=== PATIENT | female | born 1960 | race Two or more races ===

== ENCOUNTER 2021-01-01 07:50 | Outpatient (REF) | payer OTHER, SELFPAY ==
[2021-01-01 08:52] LABS: MANUAL DIFF FLAG NO
[2021-01-01 09:04] LABS: Glucose Urine UA NEG (NEG); Leukocyte Esterase Urine NEG (NEG); Nitrite Urine NEG (NEG); Specific Gravity - Urine >= 1.030 (1.005-1.025); Urine Blood NEG (NEG); Urine Ketones NEG (NEG); Urine Protein TRACE MG/DL (NEG-TRACE)
[2021-01-01 09:05] LABS: Basophils Percent Auto 0.5 % (0-2); Eosinophils Absolute Auto 0.3 X10*3/uL (0.0-0.4); Eosinophils Percent Auto 3.4 % (0-4); Hematocrit 38.4 % (37-47); Hemoglobin 12.1 g/dl (12.0-16.0); Imm Gran Abs Auto 0.03 X10*3/uL (0.00-0.03); Imm Gran Pct Auto 0.4 % (0.0-0.4); Lymphocytes Absolute Auto 2.8 X10*3/uL (1.2-4.9); Lymphocytes Percent Auto 32.2 % (20-40); Mean Corpuscular HGB Conc 31.5 g/dl (31.0-35.0); Mean Corpuscular Hemoglobin 24.2 pg (27.0-33.0); Mean Platelet Volume 11.5 fL (9.4-12.3); Monocytes Absolute Auto 0.6 X10*3/uL (0.1-1.2); Monocytes Percent Auto 6.5 % (2-11); Neutrophils Absolute Auto 4.9 X10*3/uL (2.0-8.3); Platelet Count 229 X10*3/uL (160-400); Red Blood Count 4.99 X10*6/uL (4.20-5.50); Red Cell Distribution Width 15.6 % (11.0-16.0); White Blood Count 8.6 X10*3/uL (4.8-10.8)
[2021-01-01 09:10] LABS: Appearance Urine CLEAR; Color Urine YELLOW
[2021-01-01 09:39] LABS: Alanine Aminotransferase 15 U/L (0-31); Albumin Level 4.2 g/dL (3.5-5.0); Alkaline Phosphatase 81 U/L (39-117); Anion Gap 12 (12-20); Aspartate Amino Transferase 17 U/L (5-31); Bilirubin Total 0.4 mg/dL (0.0-1.0); Blood Urea Nitrogen 15 mg/dL (9-16); Calcium 9.3 mg/dL (8.4-10.2); Carbon Dioxide 25 mmol/L (22-29); Chloride 105 mmol/L (96-108); Cholesterol 154 mg/dL; Estimated Glomerular Filt Rate > 60; Glucose Fasting 229 mg/dL (60-99); HDL Cholesterol 33 mg/dL; LDL Cholesterol Calculated 71 mg/dl; Potassium 4.9 mmol/L (3.3-5.1); Sodium 137 mmol/L (135-145); Total Protein 6.7 g/dL (6.5-8.0); Triglycerides 252 mg/dL
[2021-01-01 10:01] LABS: TSH reflex Free T4 0.68 uIU/mL (0.32-4.0)
== END 2021-01-01 07:51 | disposition home or self-care (01) ==
LOC: HO.LAB 07:50
PROVIDERS: Visit Provider Internal Medicine
DX: J30.9 Allergic rhinitis, unspecified (principal); J45.909 Unspecified asthma, uncomplicated; E11.9 Type 2 diabetes mellitus without complications; E78.5 Hyperlipidemia, unspecified; E66.3 Overweight
CPT/HCPCS: 36415; 80053; 80061; 81003; 84443; 85025

== ENCOUNTER 2021-01-02 13:00 | Outpatient (REF) | payer OTHER, SELFPAY ==
--- NOTE | ~2021-01-02 | XR_ITS ---
EXAMINATION: XR FOOT, LEFT CLINICAL INFORMATION: Left foot pain. COMPARISON: None TECHNIQUE: AP, lateral, and oblique views of the left foot. An arrow points to the lateral aspect of the tarsal bones. FINDINGS: There is no acute fracture or dislocation. Minimal first metatarsophalangeal degenerative joint changes are seen. There is no acute fracture or dislocation. The tarsal bones are normally aligned. Small plantar and retrocalcaneal spurs are noted. The soft tissues are unremarkable. XR/XR foot LT 2V IMPRESSION: 1. Minimal first metatarsophalangeal degenerative joint changes suggesting osteoarthritis. 2. Small degenerative calcaneal spurs. 3. No significant abnormality in the region of concern at the level the lateral mid foot.
== END 2021-01-02 13:01 | disposition home or self-care (01) ==
LOC: HO.XRAY 13:00
PROVIDERS: PCP Internal Medicine; Visit Provider Internal Medicine
DX: M71.372 Other bursal cyst, left ankle and foot (principal)
CPT/HCPCS: 73620

== ENCOUNTER 2021-02-11 14:50 | Outpatient (REF) | payer OTHER, SELFPAY ==
--- NOTE | ~2021-02-11 | XR_ITS ---
EXAMINATION: XR CHEST CLINICAL INFORMATION: Shortness of breath COMPARISON: Previous chest x-ray most recent September 2014 TECHNIQUE: 2 views of the chest were obtained. FINDINGS: The cardiac and mediastinal contours are stable. The lungs are clear. There is no pleural effusion or pneumonia thorax. There are degenerative changes of the spine. XR/XR chest 2V IMPRESSION: No evidence for acute disease in the chest.
== END 2021-02-11 14:51 | disposition home or self-care (01) ==
LOC: HO.XRAY 14:50
PROVIDERS: PCP Internal Medicine; Visit Provider Nurse Practitioner Family
DX: R06.02 Shortness of breath (principal)
CPT/HCPCS: 71046

== ENCOUNTER 2021-04-02 07:53 | Outpatient (REF) | payer OTHER, SELFPAY ==
[2021-04-02 08:12] LABS: MANUAL DIFF FLAG NO
[2021-04-02 08:19] LABS: Basophils Absolute Auto 0.1 X10*3/uL (0.0-0.2); Basophils Percent Auto 0.6 % (0-2); Eosinophils Absolute Auto 0.2 X10*3/uL (0.0-0.4); Eosinophils Percent Auto 2.1 % (0-4); Hematocrit 40.3 % (37-47); Hemoglobin 12.6 g/dl (12.0-16.0); Imm Gran Abs Auto 0.02 X10*3/uL (0.00-0.03); Imm Gran Pct Auto 0.2 % (0.0-0.4); Lymphocytes Absolute Auto 2.5 X10*3/uL (1.2-4.9); Lymphocytes Percent Auto 29.3 % (20-40); Mean Corpuscular HGB Conc 31.3 g/dl (31.0-35.0); Mean Corpuscular Hemoglobin 23.7 pg (27.0-33.0); Mean Corpuscular Volume 75.9 fL (80-98); Mean Platelet Volume 10.7 fL (9.4-12.3); Monocytes Absolute Auto 0.6 X10*3/uL (0.1-1.2); Monocytes Percent Auto 6.8 % (2-11); Neutrophils Absolute Auto 5.2 X10*3/uL (2.0-8.3); Platelet Count 254 X10*3/uL (160-400); Red Blood Count 5.31 X10*6/uL (4.20-5.50); Red Cell Distribution Width 15.5 % (11.0-16.0); White Blood Count 8.5 X10*3/uL (4.8-10.8)
[2021-04-02 08:34] LABS: Estimated Average Glucose 189 mg/dL; Hemoglobin A1c % 8.2 %
[2021-04-02 08:44] LABS: Appearance Urine CLEAR; Color Urine YELLOW; Glucose Urine UA NEG (NEG); Leukocyte Esterase Urine NEG (NEG); Nitrite Urine NEG (NEG); Specific Gravity - Urine >= 1.030 (1.005-1.025); Urine Blood NEG (NEG); Urine Ketones NEG (NEG); Urine Protein TRACE MG/DL (NEG-TRACE)
[2021-04-02 08:45] LABS: Alanine Aminotransferase 15 U/L (0-31); Albumin Level 4.4 g/dL (3.5-5.0); Alkaline Phosphatase 84 U/L (39-117); Anion Gap 17 (12-20); Aspartate Amino Transferase 16 U/L (5-31); Bilirubin Total 0.4 mg/dL (0.0-1.0); Blood Urea Nitrogen 16 mg/dL (9-16); Carbon Dioxide 26 mmol/L (22-29); Chloride 101 mmol/L (96-108); Cholesterol 146 mg/dL; Estimated Glomerular Filt Rate > 60; Glucose Fasting 194 mg/dL (60-99); HDL Cholesterol 30 mg/dL; LDL Cholesterol Calculated 58 mg/dl; Potassium 4.8 mmol/L (3.3-5.1); Sodium 139 mmol/L (135-145); Total Protein 6.8 g/dL (6.5-8.0); Triglycerides 290 mg/dL
[2021-04-02 08:56] LABS: TSH reflex Free T4 0.82 uIU/mL (0.32-4.0); Vitamin D 25-OH Total 17.3 ng/mL (>30)
[2021-04-02 08:59] LABS: Creatinine Urine 110.49 mg/dL; Microalbum/Creatinine Ratio Ur 201.8 ug/mg cr
== END 2021-04-02 07:54 | disposition home or self-care (01) ==
LOC: HO.LAB 07:53
PROVIDERS: PCP Internal Medicine; Visit Provider Internal Medicine
DX: E11.9 Type 2 diabetes mellitus without complications (principal); J30.2 Other seasonal allergic rhinitis; J45.40 Moderate persistent asthma, uncomplicated; E78.5 Hyperlipidemia, unspecified; E66.3 Overweight; E55.9 Vitamin D deficiency, unspecified
CPT/HCPCS: 36415; 80053; 80061; 81003; 82043; 82306; 83036; 84443; 85025

== ENCOUNTER 2021-04-08 16:52 | Outpatient (REF) | payer OTHER, SELFPAY ==
--- NOTE | ~2021-04-08 | XR_ITS ---
EXAMINATION: XR BILATERAL HIPS WITH AP PELVIS CLINICAL INFORMATION: Right hip pain. COMPARISON: None. TECHNIQUE: AP view the pelvis as well as AP and frog-leg lateral views of the right and left hip. FINDINGS: No acute fracture or dislocation. Mild right and left hip joint space narrowing with marginal osteophytes. No osseous erosion. Enthesopathic spurring at the left greater tuberosity. XR/XR hip BI w PEL1V IMPRESSION: Mild right and left hip osteoarthritis.
== END 2021-04-08 16:53 | disposition home or self-care (01) ==
LOC: HO.XRAY 16:52
PROVIDERS: PCP Internal Medicine; Visit Provider Internal Medicine
DX: M25.551 Pain in right hip (principal); M25.552 Pain in left hip
CPT/HCPCS: 73521

== ENCOUNTER 2021-04-14 10:37 | Outpatient (REF) | payer OTHER, SELFPAY ==
--- NOTE | ~2021-04-14 | US_ITS ---
EXAMINATION: US ABDOMEN COMPLETE CLINICAL INFORMATION: Epigastric pain. COMPARISON: None TECHNIQUE: Real-time imaging of the abdominal viscera. FINDINGS: PANCREAS: Normal. ABDOMINAL AORTA: The proximal, mid, and distal segments are normal in caliber. INFERIOR VENA CAVA: Visualized portions are normal. LIVER: Liver echotexture is increased probably representing fatty infiltration. There are hypoechoic areas adjacent to the gallbladder, characteristic location of focal fatty sparing. There are 2 liver cysts measuring 1.2 cm and 0.8 cm in the left lobe of the liver. There is a 2 cm peripheral hypoechoic area in the right lobe of the liver measuring 1.6 x 1.4 x 2 cm. It is uncertain whether this represents an atypical location of focal fatty sparing or a mass. There is no biliary duct dilatation. GALLBLADDER: Normal in size. There are echogenic densities adjacent to the gallbladder wall that do not move or shadow suggestive polyps. The largest measures 6 x 4 x 4 mm. No definite gallstones are seen. The gallbladder wall does not appear thickened. COMMON BILE DUCT: Normal in caliber measuring 0.5 cm in diameter. RIGHT KIDNEY: Normal. No hydronephrosis. No renal calculi or focal parenchymal lesions. The kidney measures 11.2 cm in maximum dimension. LEFT KIDNEY: There is a 5.3 x 6.1 x 5.7 cm solid hypoechoic lesion in the upper pole suggestive of a mass. There are 2 left renal stones. 5 mm in the mid and lower pole. There is an 1.8 x 1.5 x 1.9 cm heterogeneous partially solid partially cystic lesion in the lower pole questionable for complex cyst versus mass. There are several left renal cysts. No hydronephrosis. No renal calculi or focal parenchymal lesions. The kidney measures cm in maximum dimension. SPLEEN: Normal. The spleen measures 10.2 cm in maximum dimension. FREE FLUID: None. US/US abdomen complete IMPRESSION: 5 x 6 cm left upper pole renal mass. Question 1.8 x 1.5 x 1.9 cm complex cyst versus mass in the lower pole. Left renal cysts. Left renal stones. Fatty liver. 1.6 x 1.4 x 2 cm hypoechoic lesion in the peripheral right lobe of the liver. It is uncertain whether this represents a mass or atypical area of focal fatty sparing. Small liver cysts. Probable gallbladder wall polyps. Findings will be communicated by the [place] work flow masseur/masseuse Juliann Li.
== END 2021-04-14 10:38 | disposition home or self-care (01) ==
LOC: HO.HMGCX 10:37
PROVIDERS: PCP Internal Medicine; Visit Provider Internal Medicine
DX: R10.13 Epigastric pain (principal)
CPT/HCPCS: 76700

== ENCOUNTER 2021-05-15 13:17 | Outpatient (REF) | payer OTHER, SELFPAY ==
--- NOTE | ~2021-05-15 | MM_ITS ---
EXAMINATION: MM SCREENING DIGITAL BREAST TOMOSYNTHESIS, BILATERAL CLINICAL INFORMATION: Screening. Asymptomatic. Reduction mammoplasty, 2015. The lifetime risk of breast cancer based on the Tyrer-Cuzick Model is 9%. COMPARISON: Mammography: 04/30/2020, 08/11/2018, 07/20/2017 TECHNIQUE: Digital breast tomosynthesis is performed in both the craniocaudal and mediolateral oblique views along with computer-aided detection (CAD). Synthesized 2D images are generated from the tomosynthesis. FINDINGS: There are scattered areas of fibroglandular density (ACR BI-RADS breast composition Category b). There are no significant masses, abnormal calcifications, or other abnormalities. No developing density. The axilla are unremarkable. Again, there are scattered bilateral benign dystrophic coarse calcifications upper outer quadrants and bilateral dermal calcifications bilateral posterior inferior breasts. MM/MM tomosynthesis screening BI IMPRESSION: No mammographic evidence of malignancy. ASSESSMENT: BI-RADS 2: Benign RECOMMENDATION: Routine annual mammography screening. This patient's information was entered into a reminder system with a target due date for their next mammogram.
== END 2021-05-15 13:18 | disposition home or self-care (01) ==
LOC: HO.MAMMO 13:17
PROVIDERS: Visit Provider Internal Medicine
DX: Z12.31 Encounter for screening mammogram for malignant neoplasm of breast (principal)
CPT/HCPCS: 77063; 77067

== ENCOUNTER 2021-08-06 12:03 | Outpatient (REF) | payer OTHER, SELFPAY ==
[2021-08-06 12:50] LABS: Influenza A PCR NEGATIVE (Negative); Influenza B PCR NEGATIVE (Negative); Resp Syncy Virus RNA Qual PCR NEGATIVE (Negative); SARS COV2 PCR INHOUSE POSITIVE (Negative)
== END 2021-08-06 12:04 | disposition home or self-care (01) ==
LOC: HO.LNP 12:03
PROVIDERS: Visit Provider Nurse Practitioner Family
DX: Z20.822 Contact with and (suspected) exposure to COVID-19 (principal); J34.89 Other specified disorders of nose and nasal sinuses
CPT/HCPCS: 0241U

== ENCOUNTER 2021-08-11 13:04 | Outpatient (REF) | payer OTHER, SELFPAY ==
[2021-08-11 15:11] LABS: Binax Internal Control QC Valid; Binax Now Covid-19 Ag Negative (Negative)
== END 2021-08-11 13:05 | disposition home or self-care (01) ==
LOC: HO.LAB 13:04
PROVIDERS: Visit Provider Internal Medicine
DX: Z20.822 Contact with and (suspected) exposure to COVID-19 (principal)
CPT/HCPCS: 36415; C9803

== ENCOUNTER 2022-05-18 13:49 | Outpatient (REF) | payer OTHER, SELFPAY ==
--- NOTE | ~2022-05-18 | MM_ITS ---
EXAMINATION: MM SCREENING DIGITAL BREAST TOMOSYNTHESIS, BILATERAL CLINICAL INFORMATION: Screening. Asymptomatic. Prior reduction mammoplasty, 2014. The lifetime risk of breast cancer based on the Tyrer-Cuzick Model is 7%. COMPARISON: Mammography: 05/15/2021, 04/30/2020, 08/11/2018 TECHNIQUE: Digital breast tomosynthesis is performed in both the craniocaudal and mediolateral oblique views along with computer-aided detection (CAD). Synthesized 2D images are generated from the tomosynthesis. FINDINGS: There are scattered areas of fibroglandular density (ACR BI-RADS breast composition Category b). Parenchymal pattern is similar to prior studies. Parenchymal pattern is similar to prior exams. No interval mass or architectural abnormality or abnormal calcifications. There is minor scarring and stable benign dystrophic and dermal and round calcification consistent with the reduction mammoplasty. Dermal lesion again seen overlying upper left breast. No significant changes. MM/MM tomosynthesis screening BI IMPRESSION: No significant changes from prior studies. ASSESSMENT: BI-RADS 2: Benign RECOMMENDATION: Routine annual mammography screening. This patient's information was entered into a reminder system with a target due date for their next mammogram.
== END 2022-05-18 13:50 | disposition home or self-care (01) ==
LOC: HO.MAMMO 13:49
PROVIDERS: PCP Internal Medicine; Visit Provider Internal Medicine
DX: Z12.31 Encounter for screening mammogram for malignant neoplasm of breast (principal)
CPT/HCPCS: 77063; 77067

== ENCOUNTER 2022-07-28 15:01 | Outpatient (REF) | payer OTHER, SELFPAY ==
[2022-07-28 15:44] LABS: COVID-19 Test Negative (Negative); IDNOW Serial# BCCEAD1C
== END 2022-07-28 15:02 | disposition home or self-care (01) ==
LOC: HO.LAB 15:01
PROVIDERS: PCP Internal Medicine; Visit Provider Internal Medicine
DX: Z20.822 Contact with and (suspected) exposure to COVID-19 (principal)
CPT/HCPCS: 87635; C9803

== ENCOUNTER 2022-07-31 09:25 | Outpatient (REF) | payer OTHER, SELFPAY ==
[2022-07-31 10:24] LABS: Influenza A PCR NEGATIVE (Negative); Influenza B PCR NEGATIVE (Negative); Resp Syncy Virus RNA Qual PCR POSITIVE (Negative); SARS COV2 PCR INHOUSE NEGATIVE (Negative)
== END 2022-07-31 09:26 | disposition home or self-care (01) ==
LOC: HO.LAB 09:25
PROVIDERS: Nurse Practitioner Family; Visit Provider Internal Medicine
DX: Z20.822 Contact with and (suspected) exposure to COVID-19 (principal); R09.89 Other specified symptoms and signs involving the circulatory and respiratory systems; J45.909 Unspecified asthma, uncomplicated
CPT/HCPCS: 0241U

== ENCOUNTER 2022-08-04 12:56 | Outpatient (REF) | payer OTHER, SELFPAY ==
[2022-08-04 13:50] LABS: Influenza A PCR NEGATIVE (Negative); Influenza B PCR NEGATIVE (Negative); Resp Syncy Virus RNA Qual PCR POSITIVE (Negative); SARS COV2 PCR INHOUSE NEGATIVE (Negative)
== END 2022-08-04 12:57 | disposition home or self-care (01) ==
LOC: HO.LAB 12:56
PROVIDERS: Internal Medicine; Visit Provider Internal Medicine
DX: Z20.822 Contact with and (suspected) exposure to COVID-19 (principal); J98.8 Other specified respiratory disorders
CPT/HCPCS: 0241U

== ENCOUNTER 2022-08-10 09:57 | Outpatient (REF) | payer OTHER, SELFPAY ==
[2022-08-10 11:22] LABS: Influenza A PCR NEGATIVE (Negative); Influenza B PCR NEGATIVE (Negative); Resp Syncy Virus RNA Qual PCR NEGATIVE (Negative); SARS COV2 PCR INHOUSE NEGATIVE (Negative)
== END 2022-08-10 09:58 | disposition home or self-care (01) ==
LOC: HO.LAB 09:57
PROVIDERS: PCP Internal Medicine; Visit Provider Nurse Practitioner Family
DX: R09.89 Other specified symptoms and signs involving the circulatory and respiratory systems (principal); Z20.822 Contact with and (suspected) exposure to COVID-19
CPT/HCPCS: 0241U

== ENCOUNTER 2022-08-28 07:54 | Outpatient (REF) | payer OTHER, SELFPAY ==
[2022-08-28 08:06] LABS: MANUAL DIFF FLAG NO
[2022-08-28 09:00] LABS: Appearance Urine Clear; Color Urine Yellow; Glucose Urine UA >=1000 mg/dL (Negative); Leukocyte Esterase Urine Negative (Negative); Nitrite Urine Negative (Negative); Specific Gravity - Urine >= 1.030 (1.005-1.025); UMIC TRIGGER UACC YES; Urine Blood Negative (Negative); Urine Ketones Negative (Negative); Urine Protein Negative (Neg-Trace)
[2022-08-28 09:02] LABS: Basophils Absolute Auto 0.1 X10*3/uL (0.0-0.2); Basophils Percent Auto 0.7 % (0-2); Eosinophils Absolute Auto 0.3 X10*3/uL (0.0-0.4); Eosinophils Percent Auto 4.5 % (0-4); Hematocrit 44.5 % (37.0-47.0); Hemoglobin 14.2 g/dl (12.0-16.0); Imm Gran Abs Auto 0.01 X10*3/uL (0.00-0.03); Imm Gran Pct Auto 0.1 % (0.0-0.4); Lymphocytes Absolute Auto 2.7 X10*3/uL (1.2-4.9); Lymphocytes Percent Auto 37.1 % (20-40); Mean Corpuscular HGB Conc 31.9 g/dl (31.0-35.0); Mean Corpuscular Hemoglobin 24.8 pg (27.0-33.0); Mean Corpuscular Volume 77.7 fL (80.0-98.0); Mean Platelet Volume 10.8 fL (9.4-12.3); Monocytes Absolute Auto 0.5 X10*3/uL (0.1-1.2); Neutrophils Absolute Auto 3.7 x10*3/uL (2.0-8.3); Neutrophils Percent Auto 50.6 % (45-73); Platelet Count 230 X10*3/uL (160-400); Red Blood Count 5.73 X10*6/uL (4.20-5.50); Red Cell Distribution Width 15.3 % (11.0-16.0); White Blood Count 7.3 X10*3/uL (4.8-10.8)
[2022-08-28 09:03] LABS: Bacteria Urine None Seen (None Seen); Hyaline Casts Urine 0-2 /LPF (0-2); RBC Urine 0-2 /HPF (0-2); Squamous Epithelial Cell Urine 0-2 /HPF (0-2); WBC Urine 0-5 /HPF (0-5)
[2022-08-28 09:49] LABS: Creatinine Urine 46.53 mg/dL; Microalbum/Creatinine Ratio Ur 169.7 ug/mg cr
== END 2022-08-28 07:55 | disposition home or self-care (01) ==
LOC: HO.LAB 07:54
PROVIDERS: PCP Internal Medicine; Visit Provider Internal Medicine
DX: E11.9 Type 2 diabetes mellitus without complications (principal); E55.9 Vitamin D deficiency, unspecified; R30.0 Dysuria; E78.00 Pure hypercholesterolemia, unspecified; I10 Essential (primary) hypertension
CPT/HCPCS: 36415; 80053; 80061; 81001; 81003; 82043; 82306; 84443; 85025

== ENCOUNTER → 2022-09-01 07:57 | Outpatient (BNVA) | payer OTHER, SELFPAY | PROVIDERS: PCP Internal Medicine; Visit Provider Nurse Practitioner Family | DX: Z13.89 Encounter for screening for other disorder (principal) ==

== ENCOUNTER 2022-09-03 08:47 | Outpatient (REF) | payer OTHER, SELFPAY ==
--- NOTE | ~2022-09-03 | XR_ITS ---
EXAMINATION: XR CERVICAL SPINE CLINICAL INFORMATION: Cervicalgia. COMPARISON: Radiographs dated 02/05/2010. TECHNIQUE: 8 views of the cervical spine, inclusive of flexion and extension views, were obtained. FINDINGS: Vertebral body heights and alignment are normal. There is mild posterior disc space narrowing at C4-C5, with a 2 mm anterolisthesis. At C5-C6 and C6-C7, there is mild posterior disc space narrowing. The remaining disc spaces are well-maintained. No acute fracture or spondylolisthesis is seen. There is mild spondylosis at C5-C6 and C6-C7. No significant instability is seen with flexion or extension. The posterior elements are intact. There is right neural foraminal narrowing at C4-C5 through C6-C7, and left neural foraminal narrowing is seen at C5-C6. The surrounding prevertebral soft tissues are unremarkable. XR/XR cervical spine w flex/ext IMPRESSION: 1. There is mild degenerative disc disease at C4-C5, C5-C6 and C6-C7. 2. No acute fracture or spondylolisthesis is seen. There is no instability with flexion or extension. 3. There is right neural foraminal narrowing at C4-C5 through C6-C7, and left neural foraminal narrowing is seen at C5-C6.
--- NOTE | ~2022-09-03 | XR_ITS ---
EXAMINATION: XR SHOULDER, RIGHT CLINICAL INFORMATION: Pain in right shoulder. COMPARISON: X-ray of the cervical spine performed same day. TECHNIQUE: AP external rotation, Grashey, scapular Y, and axillary views of the right shoulder. FINDINGS: There is mild arthrosis of the acromioclavicular joint. Glenohumeral joint: Normal. Immediately surrounding bone and soft tissues unremarkable. Incidental note made of spondylosis of the partially visualized cervical spine and dorsal spine. XR/XR shoulder RT min 2V IMPRESSION: 1. Mild arthrosis of the acromioclavicular joint. 2. Spondylosis of the partially visualized cervical spine. See results on cervical spine radiograph performed same day for more detailed evaluation.
== END 2022-09-03 08:48 | disposition home or self-care (01) ==
LOC: HO.XRAY 08:47
PROVIDERS: PCP Internal Medicine; Visit Provider Nurse Practitioner Family
DX: M25.511 Pain in right shoulder (principal); M54.2 Cervicalgia
CPT/HCPCS: 72052; 73030

== ENCOUNTER 2022-10-22 12:00 | Outpatient (RCR) | payer OTHER, SELFPAY ==
--- NOTE | 2022-10-01 17:17 | MHC.PT.EP ---
[facility] [place] Office [place] Office [place] Office [address] Apolinar Persaud [address] [phone] F: [phone] F: [phone] F: [phone] F: [phone] Physical Therapy Plan of Care Date of Evaluation: Date of Surgery: N/A Diagnosis: Right shoulder pain Cervicalgia Assessment: Pt is a pleasant and motivated 62yo F who presents to PT with R neck and shoulder pain. She presents to PT with current impairments in pain, decreased cervical ROM, decreased strength, soft tissue restrictions, and impaired posture. She is TTP with restrictions noted throughout R UT, R levator, medial scap border and occipitals. She is limited functionally by reaching, lifting, sleeping, and looking up. She is an excellent candidate for skilled PT in order to address current impairments to facilitate return to PLOF. She is recommended to be seen 2x/week however at this time she prefers 1x/week therefore she will be seen 1x/week for 5 weeks and will be reassessed at that time. Frequency and Duration: The patient will be seen 2x/week for 5 weeks Short Term Goals: Pt will be I with HEP to promote self management of symptoms Pt will demonstrate improvements in postural awareness throughout the day Snf Goals: Pt will achieve full ROM all planes of cervical spine with minimal to no pain Pt will demonstrate ability to lift 5# object to eye level height with minimal to no discomfort Treatment Plan: Modalities to reduce pain, spasms and effusion. Manual therapy to restore motion and function. Therapeutic exercise to improve strength and flexibility. Neuromuscular re-education for posture and balance. Therapeutic activities to return to functional activities of daily living. Electronically signed by: Jackeline Murdock, PT, DPT Please sign and return to therapist. Thank you for your referral.
--- NOTE | 2022-11-30 08:35 | MHC.PT.DC ---
[facility] [place] Office [place] Office [place] Office [address] Apolinar Persaud [address] [phone] F: [phone] F: [phone] F: [phone] F: [phone] Physical Therapy Discharge Report Diagnosis: Right shoulder pain Cervicalgia Date of Surgery: N/A Date of Evaluation: 10/01/22 Date of Discharge: 11/30/22 Treatments to Date: 4 Cancellations to Date: 1 No Shows to Date: 1 Discharge Status: Patient Elected to Stop Visit Non-compliance Discharge Summary: Pt was seen for PT from 10/01/22-10/22/22. Her last attended appointment was 10/22/22. She had 1 cancellation and 1 no-show for her last 2 scheduled appointments. Pt is being D/C from skilled PT as she has not attended or called to reschedule in >30 days. Pt current level of function unknown at this time. Electronically signed by: Jackeline Murdock, PT, DPT Please sign and return to therapist. Thank you for your referral.
== END 2022-11-30 08:35 | disposition home or self-care (01) ==
LOC: HO.PT 12:00
PROVIDERS: PCP Internal Medicine; Visit Provider Nurse Practitioner Family
DX: M25.511 Pain in right shoulder (principal); M54.2 Cervicalgia
CPT/HCPCS: 97110; 97140; 97161

== ENCOUNTER 2023-03-08 08:14 | Outpatient (REF) | payer OTHER, SELFPAY ==
[2023-03-08 08:41] LABS: MANUAL DIFF FLAG NO
[2023-03-08 08:51] LABS: Basophils Absolute Auto 0.1 X10*3/uL (0.0-0.2); Basophils Percent Auto 0.7 % (0-2); Eosinophils Absolute Auto 0.2 X10*3/uL (0.0-0.4); Eosinophils Percent Auto 2.7 % (0-4); Hematocrit 45.4 % (37.0-47.0); Hemoglobin 14.4 g/dl (12.0-16.0); Imm Gran Abs Auto 0.02 X10*3/uL (0.00-0.03); Imm Gran Pct Auto 0.3 % (0.0-0.4); Lymphocytes Absolute Auto 2.4 X10*3/uL (1.2-4.9); Lymphocytes Percent Auto 33.6 % (20-40); Mean Corpuscular HGB Conc 31.7 g/dl (31.0-35.0); Mean Corpuscular Hemoglobin 24.9 pg (27.0-33.0); Mean Corpuscular Volume 78.5 fL (80.0-98.0); Monocytes Absolute Auto 0.5 X10*3/uL (0.1-1.2); Monocytes Percent Auto 6.8 % (2-11); Neutrophils Percent Auto 55.9 % (45-73); Platelet Count 220 X10*3/uL (160-400); Red Blood Count 5.78 X10*6/uL (4.20-5.50); Red Cell Distribution Width 15.6 % (11.0-16.0); White Blood Count 7.1 X10*3/uL (4.8-10.8)
[2023-03-08 09:01] LABS: Estimated Average Glucose 180 mg/dL; Hemoglobin A1c % 7.9 %
[2023-03-08 09:21] LABS: Appearance Urine Clear; Color Urine Yellow; Glucose Urine UA >=1000 mg/dL (Negative); Leukocyte Esterase Urine Negative (Negative); Nitrite Urine Negative (Negative); PH 5.5 (5.0-9.0); Specific Gravity - Urine >= 1.030 (1.005-1.025); UMIC TRIGGER UACC YES; Urine Blood Negative (Negative); Urine Ketones Negative (Negative); Urine Protein Trace mg/dL (Neg-Trace)
[2023-03-08 09:28] LABS: Bacteria Urine None Seen (None Seen); Hyaline Casts Urine 0-2 /LPF (0-2); RBC Urine 0-2 /HPF (0-2); Squamous Epithelial Cell Urine 0-2 /HPF (0-2); WBC Urine 0-5 /HPF (0-5)
[2023-03-08 09:34] LABS: Alanine Aminotransferase 17 U/L (0-31); Albumin Level 4.4 g/dL (3.5-5.0); Alkaline Phosphatase 84 U/L (39-117); Anion Gap 14 (12-20); Aspartate Amino Transferase 14 U/L (5-31); Bilirubin Total 0.4 mg/dL (0.0-1.0); Blood Urea Nitrogen 21 mg/dL (9-16); Calcium 9.7 mg/dL (8.4-10.2); Carbon Dioxide 23 mmol/L (22-29); Chloride 107 mmol/L (96-108); Cholesterol 152 mg/dL; Estimated Glomerular Filt Rate > 60; Glucose Fasting 196 mg/dL (60-99); HDL Cholesterol 33 mg/dL; LDL Cholesterol Calculated 76 mg/dl; Potassium 4.4 mmol/L (3.3-5.1); Sodium 140 mmol/L (135-145); Total Protein 7.4 g/dL (6.5-8.0); Triglycerides 217 mg/dL
[2023-03-08 09:57] LABS: TSH reflex Free T4 0.77 uIU/mL (0.32-4.0); Vitamin D 25-OH Total 30.4 ng/mL (>30)
[2023-03-08 10:36] LABS: Creatinine Urine 72.57 mg/dL; Microalbum/Creatinine Ratio Ur 107.4 ug/mg cr
== END 2023-03-08 08:15 | disposition home or self-care (01) ==
LOC: HO.LAB 08:14
PROVIDERS: PCP Internal Medicine; Visit Provider Internal Medicine
DX: E78.00 Pure hypercholesterolemia, unspecified (principal); E55.9 Vitamin D deficiency, unspecified; I10 Essential (primary) hypertension; E11.9 Type 2 diabetes mellitus without complications
CPT/HCPCS: 36415; 80053; 80061; 81001; 82043; 82306; 83036; 84443; 85025

== ENCOUNTER 2023-03-10 15:57 | Outpatient (AMB) | payer OTHER, SELFPAY ==
[2023-03-10 15:59] VITALS: BP 120/78; PULSE 85; O2SAT 97; BMI 23.7
--- NOTE | 2023-03-10 15:59 | MHC.PC.OV ---
Vital Signs 03/10/23 15:59 Height 5 ft 7 in Weight 151 lb 4 oz BMI 23.7 BP 120/78 Blood Pressure Location Lt brachial Position Sitting Pulse 85 Pulse Source Pulse Oximeter Pulse Oximetry (%) 97 Oxygen Delivery Method Room Air Intake Visit Reasons: DM, HTN, hyperlipidemia Client Technical Support Associate Required: No Accompanied by: Self / Same As Patient Allergies metformin Adverse Reaction (Unknown, Verified 03/10/23 18:18) diarrhea SEASONAL ALLERGIES Allergy (Unknown, Uncoded 03/10/23 18:18) ASTHMA Medication List - Last Reconciled 03/10/23 by Esdras Swann MD albuterol sulfate 2.5 mg (3 mL) inhalation Q4-6H PRN albuterol sulfate 90 mcg/actuation (ProAir HFA) 2 puffs inhalation Q4-6H PRN 30 days baclofen 5 - 10 mg (1 - 2 x 5 mg) PO BEDTIME 30 days blood sugar diagnostic (FreeStyle Lite Strips) USE TO TEST DIRECTED dapagliflozin propanediol (Farxiga) 10 mg PO DAILY 90 days fluticasone propionate 50 mcg/actuation (Flonase Allergy Relief) 2 sprays intranasal DAILY glimepiride 1 mg PO QAM 30 days lancets (FreeStyle Lancets) USE DIRECTED DAILY loratadine 10 mg PO DAILY PRN 90 days miscellaneous medical supply 1 ea miscellaneous DAILY naproxen 500 mg PO BID PRN nebulizer accessories TUBING [employer] ACCESSORIES Tobacco use date assessed: 03/10/23 Dental Screening Dental Screen Date: 03/10/23 Did you have a dental visit in the last 12 months?: No Did you have a dental problem in the last 6 months where you did not have access to dental care?: No Was dental information given to patient?: Patient has dentist HPI DM, HTN, hyperlipidemia HPI Details Patient comes in today for her follow up visit States that she feels okay She denies any headaches or dizziness Denies any chest pains, no SOB No nausea/vomiting, no abdominal pain No change in bowel habits noted Had her follow up labs done a couple of days ago - to discuss her results [facility] Medical History Asthma Bilateral hip pain Cervical spondylosis Diabetes mellitus Dyslipidemia Exposure to COVID-19 virus Other bursal cyst, left ankle and foot Overweight (BMI 25.0-29.9) Primary osteoarthritis, right shoulder Surgical History History of bilateral breast reduction surgery History of hysterectomy History of knee replacement procedure of right knee Family History Father Diabetes Parkinson disease Mother Medical history unknown Alzheimer disease Social History Housing: House Alcohol intake: current Alcohol intake frequency: holidays/special occasions only Patient Tobacco Use Status: Former Tobacco user e-Cigarette/Vaping Use: Never Used Second Hand Smoke Exposure: No service: No Current occupational status: employed Cognitive needs: No Hearing needs: No Vision needs: Yes Questionnaire PHQ-9 Over the last 2 weeks, how often have you been bothered by any of the following problems? 1. Little interest or pleasure in doing things: not at all 2. Feeling down, depressed, or hopeless: not at all 3. Trouble falling or staying asleep, or sleeping too much: not at all 4. Feeling tired or having little energy: not at all 5. Poor appetite or overeating: not at all 6. Feeling bad about yourself - or that you are a failure or have let yourself or your family down: not at all 7. Trouble concentrating on things, such as reading the newspaper or watching television: not at all 8. Moving or speaking so slowly that other people could have noticed. Or the opposite - being so fidgety or restless that you have been moving around a lot more than usual: not at all 9. Thoughts that you would be better off or of hurting yourself in some way: not at all Total score: 0 Depression Screening Interpretation: Negative 17243 - PHQ-9 Billing: Yes Source: Developed by Drs. Kwesi Caraballo, Pia Rosales, Davy Velazquez and colleagues, with an educational giovany from [employer]. Thrive Questionnaire Date Thrive assessed: 03/10/23 I am a: Patient What is your living situation today?: I have a steady place to live Within the past 12 months, did the food you bought not last and you didn't have the money to get more?: Never true Within the past 12 months, did you worry whether your food would run out before you got money to buy more?: Never true Do you have trouble paying for medicines?: No Do you have trouble getting transportation to medical appointments?: No Do you have trouble paying your heating and electricity bill?: No Do you have trouble taking care of your child, family member or friend?: No Do you have trouble with day-to-day activities such as bathing, preparing meals, shopping, managing finances, etc.?: No Are you currently unemployed and looking for a job?: No Are you interested in more education?: No Please select the resources that you would like help with: None Currently or been in a relationship where the following occur: no concerns reported AUDIT C Alcohol Use Questionnaire (AUDIT-C) 1. How often do you have a drink containing alcohol?: Monthly or less 2. How many drinks containing alcohol do you have on a typical day when you are drinking?: 1 or 2 3. How often do you have six or more drinks on one occasion?: Never Total Score: 1 Score Reviewed/Action Taken: Yes SALLY-7 AMB Questionnaire SALLY-7 Date SALLY - 7 assessed: 03/10/23 Feeling nervous, anxious, or on edge: 0 = Not at all Not being able to stop or control worryin = Not at all Worrying too much about different things: 0 = Not at all Trouble relaxin = Not at all Being so restless that it is hard to sit still: 0 = Not at all Becoming easily annoyed or irritable: 0 = Not at all Feeling afraid as if something awful might happen: 0 = Not at all Total SALLY-7 score (0-4 normal; 5-9 mild; 10-14 moderate; 15-21 severe): 0 Source: Developed by Drs. Kwesi Caraballo, Pia Rosales, Davy Velazquez and colleagues, with an educational giovany from [employer]. Review of Systems Const Denies chills, Denies fatigue, Denies fever(s) and Denies headache(s) ENT Denies dysphagia, Denies dizziness, Denies otalgia, Denies headache(s), Denies nasal congestion, Reports neck pain, Denies odynophagia and Denies sore throat Card Denies chest pain, Denies irregular heart rhythm, Denies palpitations and Denies dyspnea Resp Denies cough and Denies dyspnea GI Denies abdominal pain, Denies constipation, Denies dysphagia, Denies diarrhea, Denies nausea, Denies odynophagia and Denies vomiting Musc Denies abnormal gait, Reports arthralgias (over both hips and both shoulders) and Reports neck pain Neuro Denies abnormal gait, Denies dizziness and Denies headache(s) Endo Denies fatigue and Denies palpitations Aller/Immun Reports seasonal rhinorrhea Physical exam (Primary Care) Vital Signs: Last Vital Signs Pulse 85 03/10/23 15:59 BP 120/78 03/10/23 15:59 Pulse Ox 97 03/10/23 15:59 Oxygen Delivery Method Room Air 03/10/23 15:59 BMI result Body Mass Index 23.7 Tobacco/Smoking Status: Tobacco use Status Tobacco use date assessed 03/10/23 03/10/23 16:06 Patient Tobacco Use Status Former Tobacco user 03/10/23 16:06 e-Cigarette/Vaping Use Never Used 03/10/23 16:06 PHQ-9: PHQ-9 Score PHQ-9: Total score 0 03/10/23 16:24 Depression Screening Interpretation: Negative Thrive Assessment: Date of Thrive Assessment Date Thrive assessed 03/10/23 03/10/23 16:06 Currently or been in a relationship where the following occur: no concerns reported Const General: no acute distress and alert HENMT Ears: TM's normal bilaterally and EAC's normal Throat: Yes posterior oropharynx normal and Yes tonsils normal (no TP congestion noted) Neck Neck: Yes no lymphadenopathy and Yes supple Resp Auscultation: clear to auscultation bilaterally, no rales and no wheezes Cardio Rate: regular rate Rhythm: regular rhythm Heart sounds: no murmurs GI Palpation (GI): Soft to palpation and nontender Auscultation: normal bowel sounds Back/Spine/Pelvis Cervical Spine: cervical muscular tenderness Extrem General: Yes no clubbing, cyanosis or edema Results Reviewed Results Reviewed: Laboratory Tests 08/28/22 09/04/22 03/08/23 08:02 15:53 08:32 WBC 7.1 Hgb 14.2 14.4 Hct 44.5 45.4 Plt Count 230 220 Sodium Potassium Creatinine Estimated GFR Fasting Glucose Hgb A1c (Clinic) 8.3 H Hemoglobin A1c % Calcium AST ALT Triglycerides Cholesterol LDL Cholesterol, Calc HDL Cholesterol 25-OH Vitamin D Total TSH Ur Specific [place] Urine Protein Urine Glucose (UA) Urine Blood Microalb/Creat Ratio 03/08/23 03/08/23 03/08/23 08:32 08:32 08:35 WBC Hgb Hct Plt Count Sodium 140 Potassium 4.4 Creatinine 0.73 Estimated GFR > 60 Fasting Glucose 196 H Hgb A1c (Clinic) Hemoglobin A1c % 7.9 Calcium 9.7 AST 14 ALT 17 Triglycerides 217 Cholesterol 152 LDL Cholesterol, Calc 76 HDL Cholesterol 33 25-OH Vitamin D Total 30.4 TSH 0.77 Ur Specific [place] >= 1.030 H Urine Protein Trace Urine Glucose (UA) >=1000 H Urine Blood Negative Microalb/Creat Ratio 03/08/23 08:35 WBC Hgb Hct Plt Count Sodium Potassium Creatinine Estimated GFR Fasting Glucose Hgb A1c (Clinic) Hemoglobin A1c % Calcium AST ALT Triglycerides Cholesterol LDL Cholesterol, Calc HDL Cholesterol 25-OH Vitamin D Total TSH Ur Specific [place] Urine Protein Urine Glucose (UA) Urine Blood Microalb/Creat Ratio 107.4 Assessment and Plan Assessment & Plan (1) Diabetes mellitus: Code(s): E11.9 - Type 2 diabetes mellitus without complications Qualifiers: Diabetes mellitus complication status: without complication Diabetes mellitus press tender long goods insulin use: without press tender long goods use Diabetes mellitus type: type 2 Qualified Code(s): E11.9 - Type 2 diabetes mellitus without complications Plan: HgbA1c was at 7.9% (in-office HgbA1c was previously at 8.3% a few months ago) - goal is < 7.0% Reinforced diabetic diet Continue Farxiga 10 mg QD - has been tolerating Rx without any problem Patient has not been able to tolerate Metformin in the past, even at low dose (diarrhea) Will start her additionally on Glimepiride 1 mg Q AM (2) Dyslipidemia: Code(s): E78.5 - Hyperlipidemia, unspecified Plan: Results of her labs done a couple of days ago reviewed and discussed with patient - advised that her cholesterol numbers are at or near goal except for her triglyceride level, which is most likely related to her still inadequately controlled diabetes Reinforced low-cholesterol diet Will recheck her labs again in 3 months for follow-up (3) Asthma: Code(s): J45.909 - Unspecified asthma, uncomplicated Qualifiers: Asthma complication type: uncomplicated Asthma persistence: persistent Asthma severity: moderate Qualified Code(s): J45.40 - Moderate persistent asthma, uncomplicated Plan: Stable Continue Albuterol HFA 2 inhalations every 6 hours as needed (4) Allergic rhinitis: Code(s): J30.9 - Allergic rhinitis, unspecified Qualifiers: Allergic rhinitis seasonality: seasonal Allergic rhinitis trigger: unspecified Qualified Code(s): J30.2 - Other seasonal allergic rhinitis Plan: Continue Fluticasone 50 mcg nasal spray QD PRN and Loratadine 10 mg QD PRN (5) Bilateral hip pain: Code(s): M25.551 - Pain in right hip; M25.552 - Pain in left hip Plan: X-rays of both hips done last year revealed (+) mild bilateral hip osteoarthritis Will consider referral to Orthopedics if her hip pains continue to get worse (6) Primary osteoarthritis, right shoulder: Code(s): M19.011 - Primary osteoarthritis, right shoulder Plan: X-rays of her right shoulder done a few months ago (September 2022) revealed (+) mild OA changes She has been to physical therapy for her shoulder and neck pain and states that they have helped somewhat (7) Cervical spondylosis: Code(s): M47.812 - Spondylosis without myelopathy or radiculopathy, cervical region Plan: Cervical spine x-rays done back in September 2022 revealed (+) cervical spondylosis Patient has also been to physical therapy for her neck pain a couple of months ago, which she states helped somewhat with her symptoms Will refer again to physical therapy as needed Plan Follow up in 3 months Orders: Orders Comprehensive [place]. Panel Fast 3 Months E78.00 - Pure hypercholesterolemia, unspecified Lipid Panel 3 Months E78.00 - Pure hypercholesterolemia, unspecified Hemoglobin A1c 3 Months E11.9 - Type 2 diabetes mellitus without complications Complete Blood Count Auto Diff 3 Months I10 - Essential (primary) hypertension Microalbumin, Random (w Creat) 3 Months E11.9 - Type 2 diabetes mellitus without complications TSH reflex Free T4 3 Months E78.00 - Pure hypercholesterolemia, unspecified UA CC w/rflx Micro + Cult 3 Months R30.0 - Dysuria Medications: New glimepiride administer with breakfast 1 mg PO QAM 30 days 30 tabs 3RF Coding Level of Care Code Est Pt Level 4 (52283) Diagnoses Diabetes mellitus E11.9 Diabetes mellitus complication status: without complication Diabetes mellitus press tender long goods insulin use: without press tender long goods use Diabetes mellitus type: type 2 Dyslipidemia E78.5 Asthma J45.40 Asthma complication type: uncomplicated Asthma persistence: persistent Asthma severity: moderate Allergic rhinitis J30.2 Allergic rhinitis seasonality: seasonal Allergic rhinitis trigger: unspecified Bilateral hip pain M25.551; M25.552 Primary osteoarthritis, right shoulder M19.011 Cervical spondylosis M47.812
== END 2023-03-10 16:40 | disposition home or self-care (01) ==
PROVIDERS: PCP Internal Medicine; Visit Provider Internal Medicine
DX: E11.9 Type 2 diabetes mellitus without complications (principal); E78.5 Hyperlipidemia, unspecified; J45.40 Moderate persistent asthma, uncomplicated; J30.2 Other seasonal allergic rhinitis; M25.551 Pain in right hip; M25.552 Pain in left hip; M19.011 Primary osteoarthritis, right shoulder; M47.812 Spondylosis without myelopathy or radiculopathy, cervical region
CPT/HCPCS: 99214

== ENCOUNTER 2023-06-03 07:01 | Outpatient (REF) | payer OTHER, SELFPAY ==
[2023-06-03 07:06] LABS: MANUAL DIFF FLAG NO
[2023-06-03 07:13] LABS: Basophils Absolute Auto 0.1 X10*3/uL (0.0-0.2); Basophils Percent Auto 0.6 % (0-2); Eosinophils Absolute Auto 0.3 X10*3/uL (0.0-0.4); Eosinophils Percent Auto 3.1 % (0-4); Hematocrit 43.1 % (37.0-47.0); Hemoglobin 13.9 g/dl (12.0-16.0); Imm Gran Abs Auto 0.03 X10*3/uL (0.00-0.03); Imm Gran Pct Auto 0.3 % (0.0-0.4); Lymphocytes Absolute Auto 2.7 X10*3/uL (1.2-4.9); Lymphocytes Percent Auto 30.6 % (20-40); Mean Corpuscular HGB Conc 32.3 g/dl (31.0-35.0); Mean Corpuscular Hemoglobin 25.1 pg (27.0-33.0); Mean Corpuscular Volume 77.9 fL (80.0-98.0); Mean Platelet Volume 10.3 fL (9.4-12.3); Monocytes Absolute Auto 0.5 X10*3/uL (0.1-1.2); Monocytes Percent Auto 5.6 % (2-11); Neutrophils Absolute Auto 5.2 x10*3/uL (2.0-8.3); Neutrophils Percent Auto 59.8 % (45-73); Platelet Count 238 X10*3/uL (160-400); Red Blood Count 5.53 X10*6/uL (4.20-5.50); Red Cell Distribution Width 14.9 % (11.0-16.0); White Blood Count 8.7 X10*3/uL (4.8-10.8)
[2023-06-03 07:21] LABS: Estimated Average Glucose 186 mg/dL; Hemoglobin A1c % 8.1 % (<6.0)
[2023-06-03 07:45] LABS: Alanine Aminotransferase 14 U/L (0-31); Albumin Level 4.4 g/dL (3.5-5.0); Alkaline Phosphatase 106 U/L (39-117); Anion Gap 13 (12-20); Aspartate Amino Transferase 13 U/L (5-31); Bilirubin Total 0.2 mg/dL (0.0-1.0); Blood Urea Nitrogen 17 mg/dL (9-16); Calcium 9.9 mg/dL (8.4-10.2); Carbon Dioxide 25 mmol/L (22-29); Chloride 108 mmol/L (96-108); Cholesterol 148 mg/dL (<200); Estimated Glomerular Filt Rate > 60; Glucose Fasting 228 mg/dL (60-99); HDL Cholesterol 30 mg/dL (>40); LDL Cholesterol Calculated 67 mg/dL (<100); Potassium 4.6 mmol/L (3.3-5.1); Sodium 141 mmol/L (135-145); Total Protein 7.5 g/dL (6.5-8.0); Triglycerides 256 mg/dL (<150)
[2023-06-03 08:01] LABS: TSH reflex Free T4 1.47 uIU/mL (0.32-4.0)
[2023-06-03 08:59] LABS: Appearance Urine Clear; Color Urine Yellow; Glucose Urine UA >=1000 mg/dL (Negative); Leukocyte Esterase Urine Negative (Negative); Nitrite Urine Negative (Negative); PH 5.5 (5.0-9.0); Specific Gravity - Urine 1.025 (1.005-1.025); UMIC TRIGGER UACC YES; Urine Blood Negative (Negative); Urine Ketones Negative (Negative); Urine Protein Negative (Neg-Trace)
[2023-06-03 09:06] LABS: Bacteria Urine None Seen (None Seen); Hyaline Casts Urine 0-2 /LPF (0-2); RBC Urine 0-2 /HPF (0-2); Squamous Epithelial Cell Urine 0-2 /HPF (0-2); WBC Urine 0-5 /HPF (0-5)
[2023-06-03 09:29] LABS: Creatinine Urine 29.86 mg/dL
== END 2023-06-03 07:02 | disposition home or self-care (01) ==
LOC: HO.LAB 07:01
PROVIDERS: PCP Internal Medicine; Visit Provider Internal Medicine
DX: I10 Essential (primary) hypertension (principal); E11.9 Type 2 diabetes mellitus without complications; E78.00 Pure hypercholesterolemia, unspecified
CPT/HCPCS: 36415; 80053; 80061; 81001; 82043; 82570; 83036; 84443; 85025

== ENCOUNTER 2023-06-22 11:03 | Outpatient (AMB) | payer OTHER, SELFPAY ==
[2023-06-22 11:29] VITALS: BP 152/108; PULSE 92; O2SAT 98; BMI 24.5
--- NOTE | 2023-06-22 11:29 | A.OFFPC_ITS ---
Vital Signs 06/22/23 11:29 Height 5 ft 7 in Weight 156 lb 4 oz BMI 24.5 BP 152/108 H Blood Pressure Location Lt brachial Position Sitting Pulse 92 Pulse Source Pulse Oximeter Pulse Oximetry (%) 98 Oxygen Delivery Method Room Air Intake Visit Reasons: DM, asthma Allergies metformin Adverse Reaction (Unknown, Verified 06/22/23 12:08) diarrhea SEASONAL ALLERGIES Allergy (Unknown, Uncoded 03/10/23 18:18) ASTHMA Medication List - Last Reconciled 06/22/23 by Mariano Galeano PA-C albuterol sulfate 2.5 mg (3 mL) inhalation Q4-6H PRN albuterol sulfate 90 mcg/actuation (ProAir HFA) 2 puffs inhalation Q4-6H PRN 30 days blood sugar diagnostic (FreeStyle Lite Strips) USE TO TEST DIRECTED dapagliflozin propanediol (Farxiga) 10 mg PO DAILY 90 days fluticasone propionate 50 mcg/actuation (Flonase Allergy Relief) 2 sprays intranasal DAILY glimepiride 1 mg PO QAM 30 days lancets (FreeStyle Lancets) USE DIRECTED DAILY loratadine 10 mg PO DAILY PRN 90 days miscellaneous medical supply 1 ea miscellaneous DAILY nebulizer accessories [employer] ACC[employer]OR[employer] Tobacco use date assessed: 03/10/23 Dental Screening Dental Screen Date: 06/22/23 Did you have a dental visit in the last 12 months?: Yes Did you have a dental problem in the last 6 months where you did not have access to dental care?: No Was dental information given to patient?: Patient has dentist HPI DM, asthma HPI Details Patient is a 62-year-old female here today for follow-up visit. This is the 1st time I am meeting this 62-year-old female with a past medical history significant for type 2 diabetes, asthma, allergic rhinitis. .. Type 2 diabetes: Most recent A1c elevated at 8.1. She has not been able to tolerate metformin. Continues on Farxiga and glimepiride. She reports there has been a lot of stress and unfortunate events in her life. Has not been to physically active. She has been managing with poor eating habits. She does understand this all contributes to worsening diabetes. .. Concerns--->Report having worsening sinusitis lately , she reports that this is a chronic problem over the last several years. She does get intermittent episodes of very sharp pain behind her eye bowels and over her maxillary and frontal sinuses. Has been using allergy medication and nasal sprays without much relief. PLAN: Will try an antibiotic for a possible infection and transition her antihistamine therapy to Singulair. [facility] Medical History Cervical spondylosis Primary osteoarthritis, right shoulder Bilateral hip pain Other bursal cyst, left ankle and foot Overweight (BMI 25.0-29.9) Dyslipidemia Asthma Diabetes mellitus Exposure to COVID-19 virus Surgical History History of knee replacement procedure of right knee History of bilateral breast reduction surgery History of hysterectomy Family History Father Diabetes Parkinson disease Mother Medical history unknown Alzheimer disease Housing: House Alcohol intake: current Alcohol intake frequency: holidays/special occasions only Patient Tobacco Use Status: Former Tobacco user e-Cigarette/Vaping Use: Never Used Second Hand Smoke Exposure: No service: No Current occupational status: employed Cognitive needs: No Hearing needs: No Vision needs: Yes Questionnaire Thrive Questionnaire Date Thrive assessed: 03/10/23 SALLY-7 AMB Questionnaire SALLY-7 Date SALLY - 7 assessed: 03/10/23 Source: Developed by Drs. Kwesi Caraballo, Pia Rosales, Davy Velazquez and colleagues, with an educational giovany from [employer]. Review of Systems Const Reports headache(s) Eyes Denies loss of vision ENT Denies vertigo, Denies dizziness, Reports headache(s), Reports sinus pain and Denies sore throat Card Denies chest pain, Denies leg edema and Denies lightheadedness Resp Denies cough, Denies hemoptysis and Denies wheezing GI Denies abdominal pain, Denies melena, Denies constipation, Denies diarrhea and Denies vomiting Denies urinary frequency, Denies dysuria and Denies urinary urgency Musc Denies arthralgias, Denies joint swelling, Denies numbness and Denies tingling Neuro Denies Abnormal speech present, Denies behavioral changes, Denies vertigo, Denies dizziness, Reports headache(s), Denies loss of vision, Denies memory loss, Denies numbness and Denies tingling Psych Denies anxiety, Denies behavioral changes, Denies depression, Denies memory loss and Denies panic attacks Oskar/Lymph Denies easy bleeding and Denies easy bruising Aller/Immun Denies wheezing Physical exam (Primary Care) Vital Signs: Last Vital Signs Pulse 92 06/22/23 11:29 BP 152/108 H 06/22/23 11:29 Pulse Ox 98 06/22/23 11:29 Oxygen Delivery Method Room Air 06/22/23 11:29 BMI result Body Mass Index 24.5 Tobacco/Smoking Status: Tobacco use Status Tobacco use date assessed 03/10/23 06/22/23 11:30 Patient Tobacco Use Status Former Tobacco user 06/22/23 11:30 e-Cigarette/Vaping Use Never Used 06/22/23 11:30 Thrive Assessment: Date of Thrive Assessment Date Thrive assessed 03/10/23 06/22/23 11:30 Const General: healthy appearing, no acute distress, alert and awake Nutritional Appearance: well nourished Orientation/consciousness: oriented to person, oriented to place and oriented to time HENMT Other: + TENDERNESS TO PALPATION OVER FRONTAL AND MAXILLARY SINUSES. Ears: TM's normal bilaterally General nose exam: Normal nasal mucous membranes and turbinates present Eyes Conjunctivae: conjunctivae normal Sclerae: sclerae normal Pupils: Equal, round and reactive pupils present Neck Neck: Yes no lymphadenopathy and Yes no JVD Thyroid: Thyroid normal Carotids: no bruits Resp Effort & Inspection: normal respiratory effort and not tachypneic Auscultation: no crackles, no rales, no rhonchi and no wheezes Cardio Rate: regular rate Rhythm: regular rhythm Heart sounds: no murmurs and normal S1 and S2 GI Palpation (GI): Soft to palpation, nontender, no hepatomegaly and no splenomegaly Auscultation: normal bowel sounds Skin General skin exam: no rashes or lesions noted and dry skin Neuro General: oriented to person, oriented to place and oriented to time Cranial nerves: Yes Equal, round and reactive pupils present Speech: No Abnormal speech present Gait exam (Neuro): Normal gait present Motor exam (neuro): no tremor noted Extrem Right upper extremity: full ROM Left upper extremity: full ROM Right lower extremity: full ROM; no edema Left lower extremity: full ROM; no edema Psych Mental Status: mental status grossly normal Speech and movement: Normal speech and movement present Affect: normal affect Attitude: cooperative Thought process: Normal thought process present Assessment and Plan Assessment & Plan (1) Diabetes mellitus: Code(s): E11.9 - Type 2 diabetes mellitus without complications Qualifiers: Diabetes mellitus complication status: without complication Diabetes mellitus technical cable jointer insulin use: without senior living use Diabetes mellitus type: type 2 Qualified Code(s): E11.9 - Type 2 diabetes mellitus without complications Plan: Patient's type 2 diabetes suboptimally controlled with A1c above 8 today. She does admit to dietary indiscretion and less physical activity. She has not been able to tolerate metformin. She continues on other oral anti hyperglycemics. She will work on lifestyle modifications to help reduce her sugar further. Goal A1c is to be below 7 (2) Chronic frontal sinusitis: Code(s): J32.1 - Chronic frontal sinusitis Plan: Patient has a chronic history of chronic sinusitis to which she has tried many different modalities such as medication, nasal sprays and vaporizers all without much relief. She does report azithromycin is helpful temporarily. She would like to see an ENT specialist for evaluation of her sinuses. Orders: Referrals Ear/Nose/Throat Referral J32.1 - Chronic frontal sinusitis Medications: New azithromycin For 250 mg dose pack: take 500 mg today (day 1), then 250 mg for 4 days (days 2-5) PO 6 tabs 0RF J32.1 - Chronic frontal sinusitis montelukast (Singulair) 10 mg PO DAILY 90 tabs 1RF J32.1 - Chronic frontal sinusitis Discontinued loratadine Discontinued Reason: Doctor's Order 10 mg PO DAILY PRN 90 tabs 3RF allergy symptoms 90 days J30.9 - Allergic rhinitis, unspecified Coding Level of Care Code Est Pt Level 4 (41234) Diagnoses Type 2 diabetes mellitus without complication, without long-term current use of insulin E11.9 Diabetes mellitus complication status: without complication Diabetes mellitus technical cable jointer insulin use: without technical cable jointer use Diabetes mellitus type: type 2 Chronic frontal sinusitis J32.1
== END 2023-06-22 12:27 | disposition home or self-care (01) ==
PROVIDERS: PCP Internal Medicine; Visit Provider Physician Assistant
DX: E11.9 Type 2 diabetes mellitus without complications (principal); J32.1 Chronic frontal sinusitis
CPT/HCPCS: 99214

== ENCOUNTER 2023-07-02 08:50 | Outpatient (REF) | payer OTHER, SELFPAY ==
--- NOTE | ~2023-07-02 | MM_ITS ---
EXAMINATION: MM SCREENING DIGITAL BREAST TOMOSYNTHESIS, BILATERAL CLINICAL INFORMATION: Screening. Asymptomatic. The patient is status post bilateral breast reduction. COMPARISON: Mammography: This study is compared with prior exams dating back to 2017. TECHNIQUE: Digital breast tomosynthesis is performed in both the craniocaudal and mediolateral oblique views along with computer-aided detection (CAD). Synthesized 2D images are generated from the tomosynthesis. FINDINGS: There are scattered areas of fibroglandular density (ACR BI-RADS breast composition Category b). There are bilateral, benign calcifications and post reduction changes in each breast. Inspection There are no significant masses, abnormal calcifications, or other abnormalities. MM/MM tomosynthesis screening BI IMPRESSION: No mammographic evidence of malignancy. ASSESSMENT: BI-RADS BI-RADS 2 - Benign Findings RECOMMENDATION: Routine annual mammography screening. 1 year F/U This examination should not preclude the clinical evaluation of a suspicious palpable abnormality. This patient's information was entered into a reminder system with a target due date for their next mammogram.
== END 2023-07-02 08:51 | disposition home or self-care (01) ==
LOC: HO.MAMMO 08:50
PROVIDERS: PCP Internal Medicine; Visit Provider Internal Medicine
DX: Z12.31 Encounter for screening mammogram for malignant neoplasm of breast (principal)
CPT/HCPCS: 77063; 77067

== ENCOUNTER → 2023-07-02 09:00 | Outpatient (BNV) | payer OTHER, SELFPAY | PROVIDERS: PCP Internal Medicine; Visit Provider Radiology Diagnostic Radiology | DX: Z12.31 Encounter for screening mammogram for malignant neoplasm of breast (principal) | CPT/HCPCS: 77063; 77067 ==

== ENCOUNTER 2023-09-22 07:19 | Outpatient (REF) | payer OTHER, SELFPAY ==
[2023-09-22 07:32] LABS: MANUAL DIFF FLAG NO
[2023-09-22 08:01] LABS: Estimated Average Glucose 177 mg/dL; Hemoglobin A1c % 7.8 % (<6.0)
[2023-09-22 08:02] LABS: Basophils Percent Auto 0.5 % (0-2); Eosinophils Absolute Auto 0.3 X10*3/uL (0.0-0.4); Eosinophils Percent Auto 2.8 % (0-4); Hematocrit 44.6 % (37.0-47.0); Imm Gran Abs Auto 0.03 X10*3/uL (0.00-0.03); Imm Gran Pct Auto 0.3 % (0.0-0.4); Lymphocytes Absolute Auto 2.8 X10*3/uL (1.2-4.9); Lymphocytes Percent Auto 31.3 % (20-40); Mean Corpuscular HGB Conc 31.4 g/dl (31.0-35.0); Mean Corpuscular Hemoglobin 24.9 pg (27.0-33.0); Mean Corpuscular Volume 79.2 fL (80.0-98.0); Mean Platelet Volume 11.3 fL (9.4-12.3); Monocytes Absolute Auto 0.6 X10*3/uL (0.1-1.2); Monocytes Percent Auto 6.4 % (2-11); Neutrophils Absolute Auto 5.2 x10*3/uL (2.0-8.3); Neutrophils Percent Auto 58.7 % (45-73); Platelet Count 239 X10*3/uL (160-400); Red Blood Count 5.63 X10*6/uL (4.20-5.50); Red Cell Distribution Width 14.8 % (11.0-16.0); White Blood Count 8.8 X10*3/uL (4.8-10.8)
[2023-09-22 08:14] LABS: Appearance Urine Clear; Color Urine Yellow; Glucose Urine UA Negative (Negative); Leukocyte Esterase Urine Negative (Negative); Nitrite Urine Negative (Negative); PH 5.5 (5.0-9.0); Specific Gravity - Urine 1.025 (1.005-1.025); UMIC TRIGGER UACC YES; Urine Blood Negative (Negative); Urine Ketones Negative (Negative); Urine Protein 30 (1+) mg/dL (Neg-Trace)
[2023-09-22 08:20] LABS: Creatinine Urine 154.76 mg/dL; Microalbum/Creatinine Ratio Ur 138.2 ug/mg cr (<30)
[2023-09-22 08:35] LABS: Alanine Aminotransferase 20 U/L (0-31); Albumin Level 4.5 g/dL (3.5-5.0); Alkaline Phosphatase 86 U/L (39-117); Anion Gap 14 (12-20); Aspartate Amino Transferase 17 U/L (5-31); Bilirubin Total 0.4 mg/dL (0.0-1.0); Blood Urea Nitrogen 20 mg/dL (9-16); Calcium 9.6 mg/dL (8.4-10.2); Carbon Dioxide 27 mmol/L (22-29); Chloride 106 mmol/L (96-108); Cholesterol 132 mg/dL (<200); Estimated Glomerular Filt Rate > 60; Glucose Fasting 200 mg/dL (60-99); HDL Cholesterol 32 mg/dL (>40); LDL Cholesterol Calculated 56 mg/dL (<100); Potassium 4.9 mmol/L (3.3-5.1); Sodium 142 mmol/L (135-145); Total Protein 7.3 g/dL (6.5-8.0); Triglycerides 224 mg/dL (<150)
[2023-09-22 08:42] LABS: TSH reflex Free T4 1.22 uIU/mL (0.32-4.0)
[2023-09-22 09:02] LABS: Bacteria Urine None Seen (None Seen); Hyaline Casts Urine 0-2 /LPF (0-2); RBC Urine 0-2 /HPF (0-2); Squamous Epithelial Cell Urine 0-2 /HPF (0-2); WBC Urine 0-5 /HPF (0-5)
[2023-09-22 09:05] LABS: Folate 11.4 ng/mL (> or = 4.0); Vitamin B12 1060 pg/mL (200-900)
[2023-09-23 08:39] LABS: C Peptide 3.93 ng/mL (0.80-3.85)
[2023-09-25 20:54] LABS: Glutamic acid decarboxylase Ab <5 IU/mL (<5)
== END 2023-09-22 07:20 | disposition home or self-care (01) ==
LOC: HO.LAB 07:19
PROVIDERS: PCP Internal Medicine; Visit Provider Internal Medicine
DX: E78.00 Pure hypercholesterolemia, unspecified (principal); R30.0 Dysuria; E53.8 Deficiency of other specified B group vitamins; E11.9 Type 2 diabetes mellitus without complications; I10 Essential (primary) hypertension
CPT/HCPCS: 36415; 80053; 80061; 81001; 81003; 82043; 82570; 82607; 82746; 83036; 84443; 84681; 85025; 86341

== ENCOUNTER 2023-09-28 16:14 | Outpatient (AMB) | payer OTHER, SELFPAY ==
[2023-09-28 16:17] VITALS: BP 146/90; PULSE 78; O2SAT 99; BMI 24.6
--- NOTE | 2023-09-28 16:17 | MHC.PC.OV ---
Vital Signs 09/28/23 16:17 09/28/23 17:06 Height 5 ft 7 in Weight 157 lb BMI 24.6 BP 146/90 H 130/80 Blood Pressure Location Lt brachial Lt brachial Position Sitting Sitting Pulse 78 Pulse Source Pulse Oximeter Pulse Oximetry (%) 99 Oxygen Delivery Method Room Air Intake Visit Reasons: f/u DMII Certified Technician Required: No Restorative Rehab Aide: Not Required per policy Accompanied by: Self / Same As Patient Allergies metformin Adverse Reaction (Unknown, Verified 01/25/24 16:56) diarrhea SEASONAL ALLERGIES Allergy (Unknown, Uncoded 01/25/24 16:56) ASTHMA Medication List - Last Reconciled 09/28/23 by Esdras Swann MD albuterol sulfate 90 mcg/actuation (ProAir HFA) 2 puffs inhalation Q4-6H PRN 30 days albuterol sulfate 2.5 mg (3 mL) inhalation Q4-6H PRN blood sugar diagnostic (FreeStyle Lite Strips) USE TO TEST DIRECTED dapagliflozin propanediol (Farxiga) 10 mg PO DAILY 90 days fluticasone propionate 50 mcg/actuation (Flonase Allergy Relief) 2 sprays intranasal DAILY glimepiride 1 mg PO QAM 30 days lancets (FreeStyle Lancets) USE DIRECTED DAILY miscellaneous medical supply 1 ea miscellaneous DAILY montelukast (Singulair) 10 mg PO DAILY nebulizer accessories TUBING AND ACCESSORIES Tobacco use date assessed: 09/28/23 Dental Screening Dental Screen Date: 09/28/23 Did you have a dental visit in the last 12 months?: Yes Did you have a dental problem in the last 6 months where you did not have access to dental care?: No Was dental information given to patient?: Patient has dentist HPI f/u DMII HPI Details Patient comes in today for her follow up visit States that she feels okay She denies any headaches or dizziness Denies any chest pains, no SOB No nausea/vomiting, no abdominal pain No change in bowel habits noted Needs her Glimepiride Rx refilled She had her follow up labs done last week - to discuss her results [facility] Medical History (Updated 01/25/24 @ 23:53 by Esdras Swann MD) Vitamin D deficiency Bilateral primary osteoarthritis of hip Cervical spondylosis Primary osteoarthritis, right shoulder Bilateral hip pain Other bursal cyst, left ankle and foot Overweight (BMI 25.0-29.9) Dyslipidemia Asthma Diabetes mellitus Exposure to COVID-19 virus Surgical History History of knee replacement procedure of right knee History of bilateral breast reduction surgery History of hysterectomy Family History Father Diabetes Parkinson disease Mother Medical history unknown Alzheimer disease Social History Housing: House Alcohol intake: current Alcohol intake frequency: holidays/special occasions only Patient Tobacco Use Status: Former Tobacco user e-Cigarette/Vaping Use: Never Used Second Hand Smoke Exposure: No service: No Current occupational status: employed Cognitive needs: No Hearing needs: No Vision needs: Yes Questionnaire PHQ-9 Over the last 2 weeks, how often have you been bothered by any of the following problems? 1. Little interest or pleasure in doing things: several days 2. Feeling down, depressed, or hopeless: several days 3. Trouble falling or staying asleep, or sleeping too much: more than half the days 4. Feeling tired or having little energy: more than half the days 5. Poor appetite or overeating: more than half the days 6. Feeling bad about yourself - or that you are a failure or have let yourself or your family down: not at all 7. Trouble concentrating on things, such as reading the newspaper or watching television: not at all 8. Moving or speaking so slowly that other people could have noticed. Or the opposite - being so fidgety or restless that you have been moving around a lot more than usual: not at all 9. Thoughts that you would be better off or of hurting yourself in some way: not at all Total score: 8 Depression Screening Interpretation: Positive Depression Screening Follow-up: Existing condition and Follow-up Visit Requested Depression Screening Done: Yes 83828 - PHQ-9 Billing: Yes Source: Developed by Drs. Kwesi Caraballo, Pia Rosales, Davy Vleazquez and colleagues, with an educational giovany from [employer]. Thrive Questionnaire Date Thrive assessed: 09/28/23 I am a: Patient What is your living situation today?: I have a steady place to live Within the past 12 months, did the food you bought not last and you didn't have the money to get more?: Never true Within the past 12 months, did you worry whether your food would run out before you got money to buy more?: Never true Do you have trouble paying for medicines?: No Do you have trouble getting transportation to medical appointments?: No Do you have trouble paying your heating and electricity bill?: No Do you have trouble taking care of your child, family member or friend?: No Do you have trouble with day-to-day activities such as bathing, preparing meals, shopping, managing finances, etc.?: No Are you currently unemployed and looking for a job?: No Are you interested in more education?: No Please select the resources that you would like help with: None Currently or been in a relationship where the following occur: no concerns reported THRIVE Score: 0 AUDIT C Alcohol Use Questionnaire (AUDIT-C) 1. How often do you have a drink containing alcohol?: Monthly or less 2. How many drinks containing alcohol do you have on a typical day when you are drinking?: 1 or 2 3. How often do you have six or more drinks on one occasion?: Never Total Score: 1 Score Reviewed/Action Taken: Yes SALLY-7 AMB Questionnaire SALLY-7 Date SALLY - 7 assessed: 09/28/23 Feeling nervous, anxious, or on edge: 0 = Not at all Not being able to stop or control worryin = Not at all Worrying too much about different things: 0 = Not at all Trouble relaxin = Not at all Being so restless that it is hard to sit still: 0 = Not at all Becoming easily annoyed or irritable: 0 = Not at all Feeling afraid as if something awful might happen: 0 = Not at all Total SALLY-7 score (0-4 normal; 5-9 mild; 10-14 moderate; 15-21 severe): 0 Source: Developed by Drs. Kwesi Caraballo, Pia Rosales, Davy Velazquez and colleagues, with an educational giovany from [employer]. Review of Systems Const Denies chills, Denies fatigue, Denies fever(s) and Denies headache(s) ENT Denies dysphagia, Denies dizziness, Denies otalgia, Denies headache(s), Reports neck pain (on and off), Denies odynophagia and Denies sore throat Card Denies chest pain, Denies irregular heart rhythm, Denies palpitations and Denies dyspnea Resp Denies cough and Denies dyspnea GI Denies abdominal pain, Denies constipation, Denies dysphagia, Denies diarrhea, Denies nausea, Denies odynophagia and Denies vomiting Denies difficulty voiding, Denies nocturia, Denies dysuria and Denies urinary urgency Musc Denies back pain, Reports arthralgias (over both hips and both shoulders) and Reports neck pain (on and off) Skin/Breast Denies rash Neuro Denies dizziness and Denies headache(s) Endo Denies fatigue and Denies palpitations Physical exam (Primary Care) Vital Signs: Last Vital Signs Pulse 78 09/28/23 16:17 BP 130/80 09/28/23 17:06 Pulse Ox 99 09/28/23 16:17 Oxygen Delivery Method Room Air 09/28/23 16:17 BMI result Body Mass Index 24.6 Tobacco/Smoking Status: Tobacco use Status Tobacco use date assessed 09/28/23 09/28/23 16:18 Patient Tobacco Use Status Former Tobacco user 09/28/23 16:18 e-Cigarette/Vaping Use Never Used 09/28/23 16:18 PHQ-9: PHQ-9 Score PHQ-9: Total score 8 09/28/23 16:59 Depression Screening Interpretation: Positive Depression Screening Follow-up: Existing condition and Follow-up Visit Requested Thrive Assessment: Date of Thrive Assessment Date Thrive assessed 09/28/23 09/28/23 16:18 Currently or been in a relationship where the following occur: no concerns reported Const General: no acute distress and alert HENMT Ears: TM's normal bilaterally and EAC's normal Throat: Yes posterior oropharynx normal and Yes tonsils normal (no TP congestion noted) Neck Neck: Yes no lymphadenopathy and Yes supple Thyroid: Thyroid normal Resp Auscultation: clear to auscultation bilaterally, no rales and no wheezes Cardio Rate: regular rate Rhythm: regular rhythm Heart sounds: no murmurs GI Palpation (GI): Soft to palpation and nontender Auscultation: normal bowel sounds General: Yes no CVA tenderness Back/Spine/Pelvis Back: no CVA tenderness Cervical Spine: Cervical spine tenderness Thoracic/Lumbar Spine: No lumbar spinal tenderness Skin Rashes: no rashes Extrem General: Yes no clubbing, cyanosis or edema Results Reviewed Results Reviewed: Laboratory Tests 09/22/23 09/22/23 09/22/23 07:24 07:24 07:28 WBC 8.8 Hgb 14.0 Hct 44.6 Plt Count 239 Sodium 142 Potassium 4.9 Creatinine 0.79 Estimated GFR > 60 Fasting Glucose 200 H Hemoglobin A1c % 7.8 H C-Peptide 3.93 H Calcium 9.6 AST 17 ALT 20 Triglycerides 224 H Cholesterol 132 LDL Cholesterol, Calc 56 HDL Cholesterol 32 L Vitamin B12 1060 H Folate 11.4 TSH 1.22 Ur Specific [place] 1.025 Urine Protein 30 (1+) H Urine Glucose (UA) Negative Urine Blood Negative Urine Nitrite Negative Ur Leukocyte Esterase Negative Microalb/Creat Ratio 138.2 H SALLY Antibody <5 Assessment and Plan Assessment & Plan (1) Diabetes mellitus: Code(s): E11.9 - Type 2 diabetes mellitus without complications Qualifiers: Diabetes mellitus complication status: without complication Diabetes mellitus long term care phlebotomist insulin use: without skilled nursing use Diabetes mellitus type: type 2 Qualified Code(s): E11.9 - Type 2 diabetes mellitus without complications Plan: Her HgbA1c was at 7.8% on her labs done last week (her in-office HgbA1c was previously at 8.1% a few months ago) - goal is < 7.0% Reinforced diabetic diet Continue Farxiga 10 mg QD (has been tolerating Rx without any problem) and Glimepiride 1 mg Q AM Patient has not been able to tolerate Metformin in the past, even at low dose (diarrhea) (2) Dyslipidemia: Code(s): E78.5 - Hyperlipidemia, unspecified Plan: Results of her labs done last week reviewed and discussed with patient Reinforced low-cholesterol diet Will recheck her labs and fasting lipids in 4 months for follow-up (3) Asthma: Code(s): J45.909 - Unspecified asthma, uncomplicated Qualifiers: Asthma complication type: uncomplicated Asthma persistence: persistent Asthma severity: moderate Qualified Code(s): J45.40 - Moderate persistent asthma, uncomplicated Plan: Stable Continue Albuterol HFA 2 inhalations every 6 hours as needed (4) Allergic rhinitis: Code(s): J30.9 - Allergic rhinitis, unspecified Qualifiers: Allergic rhinitis seasonality: seasonal Allergic rhinitis trigger: unspecified Qualified Code(s): J30.2 - Other seasonal allergic rhinitis Plan: Continue Fluticasone 50 mcg nasal spray QD PRN and Loratadine 10 mg QD PRN (5) Primary osteoarthritis, right shoulder: Code(s): M19.011 - Primary osteoarthritis, right shoulder Plan: X-rays of her right shoulder done last year in September 2022 revealed (+) mild OA changes She has been to physical therapy for her shoulder and neck pain and states that they have helped somewhat (6) Cervical spondylosis: Code(s): M47.812 - Spondylosis without myelopathy or radiculopathy, cervical region Plan: Cervical spine x-rays done back in September 2022 revealed (+) cervical spondylosis Patient has also been to physical therapy for her neck pain a couple of months ago, which she states helped somewhat with her symptoms Will refer her again to physical therapy as needed (7) Bilateral primary osteoarthritis of hip: Code(s): M16.0 - Bilateral primary osteoarthritis of hip Plan: X-rays of both hips done last year revealed (+) mild bilateral hip osteoarthritis Will consider referral to Orthopedics if her hip pains continue to get worse Plan Follow up in 4 months Orders: Orders Complete Blood Count Auto Diff 4 Months D64.9 - Anemia, unspecified Comprehensive [place]. Panel Fast 4 Months E78.00 - Pure hypercholesterolemia, unspecified Lipid Panel 4 Months E78.00 - Pure hypercholesterolemia, unspecified Hemoglobin A1c 4 Months E11.9 - Type 2 diabetes mellitus without complications Microalbumin, Random (w Creat) 4 Months E11.9 - Type 2 diabetes mellitus without complications TSH reflex Free T4 4 Months E78.00 - Pure hypercholesterolemia, unspecified UA CC w/rflx Micro + Cult 4 Months R30.0 - Dysuria Vitamin D 25-OH Total 4 Months E55.9 - Vitamin D deficiency, unspecified Medications: Changed From glimepiride administer with breakfast 1 mg PO QAM 30 days 30 tabs 3RF To glimepiride administer with breakfast 2 mg PO QAM 30 tabs 3RF 30 days Refilled dapagliflozin propanediol (Farxiga) 10 mg PO DAILY 90 tabs 1RF 90 days Coding Level of Care Code Est Pt Level 4 (29623) Diagnoses Type 2 diabetes mellitus without complication, without long-term current use of insulin E11.9 Diabetes mellitus complication status: without complication Diabetes mellitus skilled nursing insulin use: without long term care phlebotomist use Diabetes mellitus type: type 2 Dyslipidemia E78.5 Moderate persistent asthma without complication J45.40 Asthma complication type: uncomplicated Asthma persistence: persistent Asthma severity: moderate Seasonal allergic rhinitis, unspecified trigger J30.2 Allergic rhinitis seasonality: seasonal Allergic rhinitis trigger: unspecified Primary osteoarthritis, right shoulder M19.011 Cervical spondylosis M47.812 Bilateral primary osteoarthritis of hip M16.0
[2023-09-28 17:06] VITALS: BP 130/80
== END 2023-09-28 17:10 | disposition home or self-care (01) ==
PROVIDERS: PCP Internal Medicine; Visit Provider Internal Medicine
DX: E11.9 Type 2 diabetes mellitus without complications (principal); E78.5 Hyperlipidemia, unspecified; J45.40 Moderate persistent asthma, uncomplicated; J30.2 Other seasonal allergic rhinitis; M19.011 Primary osteoarthritis, right shoulder; M47.812 Spondylosis without myelopathy or radiculopathy, cervical region; M16.0 Bilateral primary osteoarthritis of hip
CPT/HCPCS: 99499

== ENCOUNTER 2023-10-18 15:06 | Outpatient (AMB) | payer OTHER, SELFPAY ==
[2023-10-18 15:07] VITALS: BP 136/90; BMI 25.2
--- NOTE | 2023-10-18 15:07 | MHC.PC.OV ---
Vital Signs 10/18/23 15:07 Height 5 ft 7 in Weight 161 lb BMI 25.2 BP 136/90 H Blood Pressure Location Lt brachial Position Sitting Intake Visit Reasons: same day sinus infection Intake Note: Patient here c/o sinus infection Co Pilot Required: No Accompanied by: Self / Same As Patient Allergies metformin Adverse Reaction (Unknown, Verified 10/18/23 15:26) diarrhea SEASONAL ALLERGIES Allergy (Unknown, Uncoded 10/18/23 15:26) ASTHMA Medication List - Last Reconciled 10/18/23 by Shona Lowery MD albuterol sulfate 90 mcg/actuation (ProAir HFA) 2 puffs inhalation Q4-6H PRN 30 days albuterol sulfate 2.5 mg (3 mL) inhalation Q4-6H PRN blood sugar diagnostic (FreeStyle Lite Strips) USE TO TEST DIRECTED dapagliflozin propanediol (Farxiga) 10 mg PO DAILY 90 days fluticasone propionate 50 mcg/actuation (Flonase Allergy Relief) 2 sprays intranasal DAILY glimepiride 2 mg PO QAM 30 days lancets (FreeStyle Lancets) USE DIRECTED DAILY loratadine 10 mg PO DAILY miscellaneous medical supply 1 ea miscellaneous DAILY montelukast (Singulair) 10 mg PO DAILY nebulizer accessories TUBING AND ACCESSORIES Tobacco use date assessed: 09/28/23 HPI HPI Comments History of Present Illness Details This is a 63-year-old female with diabetes mellitus type 2, allergic rhinitis and asthma that comes today complaining of sinus pressure and tenderness with bilateral ear popping and nasal congestion that started about 3-4 days ago. No fever. Tested negative for COVID-19 at own. A1c elevated but has improved. Allergic rhinitis stable with Singulair. Asthma stable and use rescue inhaler once a month. No chest pain or shortness a breath. No change in bowel or bladder habits. [facility] Medical History (Updated 10/18/23 @ 15:43 by Shona Lowery MD) Cervical spondylosis Primary osteoarthritis, right shoulder Bilateral hip pain Other bursal cyst, left ankle and foot Overweight (BMI 25.0-29.9) Dyslipidemia Asthma Diabetes mellitus Exposure to COVID-19 virus Surgical History History of knee replacement procedure of right knee History of bilateral breast reduction surgery History of hysterectomy Family History Father Diabetes Parkinson disease Mother Medical history unknown Alzheimer disease Social History Housing: House Alcohol intake: current Alcohol intake frequency: holidays/special occasions only Patient Tobacco Use Status: Former Tobacco user e-Cigarette/Vaping Use: Never Used Second Hand Smoke Exposure: No service: No Current occupational status: employed Cognitive needs: No Hearing needs: No Vision needs: Yes Questionnaire Thrive Questionnaire Date Thrive assessed: 09/28/23 SALLY-7 AMB Questionnaire SALLY-7 Date SALLY - 7 assessed: 09/28/23 Source: Developed by Drs. Kwesi Caraballo, Pia Rosales, Davy Velazquez and colleagues, with an educational giovany from [employer]. Review of Systems Const All systems reviewed & are unremarkable except as noted in HPI and below Eyes Reports no additional complaints, Denies change in vision and Denies other visual disturbances Card Denies chest pain at rest, Denies chest pain with activity, Denies edema, Denies irregular heart rhythm, Denies claudication, Denies dyspnea, Denies dyspnea on exertion, Denies orthopnea, Denies paroxysmal nocturnal dyspnea and Denies slow heart rate Resp Denies cough, Denies dyspnea and Denies dyspnea on exertion GI Denies abdominal pain, Denies change in bowel habits, Denies excessive flatus, Denies nausea and Denies vomiting Denies urinary incontinence, Denies urinary hesitancy and Denies urinary urgency Musc Denies atrophy, Denies deformity and Denies limited range of motion Physical exam (Primary Care) Vital Signs: Last Vital Signs BP 136/90 H 10/18/23 15:07 BMI result Body Mass Index 25.2 Tobacco/Smoking Status: Tobacco use Status Tobacco use date assessed 09/28/23 10/18/23 15:07 Patient Tobacco Use Status Former Tobacco user 10/18/23 15:07 e-Cigarette/Vaping Use Never Used 10/18/23 15:07 Thrive Assessment: Date of Thrive Assessment Date Thrive assessed 09/28/23 10/18/23 15:07 HENMT Ears: external ears normal and TM's normal bilaterally General nose exam: Nasal discharge present Eyes General: appearance normal, both eyes and all related structures Eyelids: Yes eyelids normal Conjunctivae: conjunctivae normal Neck Neck: Yes normal visual inspection and Yes supple Resp Effort & Inspection: normal respiratory effort Auscultation: clear to auscultation bilaterally Cardio Jugular venous distension: no JVD Rate: regular rate Rhythm: regular rhythm Heart sounds: S1 normal heart sound present and S2 normal heart sound present Extrem General: Yes full ROM Assessment and Plan Assessment & Plan (1) Acute maxillary sinusitis: Code(s): J01.00 - Acute maxillary sinusitis, unspecified Plan: Start Z-Oswald. (2) Diabetes mellitus: Code(s): E11.9 - Type 2 diabetes mellitus without complications Qualifiers: Diabetes mellitus type: type 2 Diabetes mellitus senior living insulin use: without operator weapon locating radar use Diabetes mellitus complication status: without complication Qualified Code(s): E11.9 - Type 2 diabetes mellitus without complications Plan: Continue Farxiga. A1c goal is equal or less than 7%. (3) Allergic rhinitis: Code(s): J30.9 - Allergic rhinitis, unspecified Qualifiers: Allergic rhinitis trigger: unspecified Allergic rhinitis seasonality: seasonal Qualified Code(s): J30.2 - Other seasonal allergic rhinitis Plan: Continue Singulair. (4) Asthma: Code(s): J45.909 - Unspecified asthma, uncomplicated Qualifiers: Asthma severity: moderate Asthma persistence: persistent Asthma complication type: uncomplicated Qualified Code(s): J45.40 - Moderate persistent asthma, uncomplicated Plan: Use rescue inhaler as needed. Medications: New azithromycin Take 2 tabs the first day, then 1 tab for the next 4 days 250 mg PO DAILY 5 days 6 tabs 0RF Coding Level of Care Code Est Pt Level 4 (82076) Diagnoses Acute maxillary sinusitis J01.00 Type 2 diabetes mellitus without complication, without long-term current use of insulin E11.9 Diabetes mellitus type: type 2 Diabetes mellitus senior living insulin use: without operator weapon locating radar use Diabetes mellitus complication status: without complication Seasonal allergic rhinitis, unspecified trigger J30.2 Allergic rhinitis trigger: unspecified Allergic rhinitis seasonality: seasonal Moderate persistent asthma without complication J45.40 Asthma severity: moderate Asthma persistence: persistent Asthma complication type: uncomplicated Time Spent (min) 21
== END 2023-10-18 15:33 | disposition home or self-care (01) ==
PROVIDERS: PCP Internal Medicine; Visit Provider Internal Medicine
DX: J01.00 Acute maxillary sinusitis, unspecified (principal); E11.9 Type 2 diabetes mellitus without complications; J30.2 Other seasonal allergic rhinitis; J45.40 Moderate persistent asthma, uncomplicated
CPT/HCPCS: 99214

== ENCOUNTER 2024-01-24 07:07 | Outpatient (REF) | payer OTHER, SELFPAY ==
[2024-01-24 07:16] LABS: MANUAL DIFF FLAG NO
[2024-01-24 07:51] LABS: Appearance Urine Clear; Color Urine Yellow; Glucose Urine UA Negative (Negative); Leukocyte Esterase Urine Small (1+) (Negative); Nitrite Urine Negative (Negative); UMIC TRIGGER UACC YES; Urine Blood Negative (Negative); Urine Ketones Negative (Negative); Urine Protein 30 (1+) mg/dL (Neg-Trace)
[2024-01-24 07:52] LABS: Basophils Absolute Auto 0.1 X10*3/uL (0.0-0.2); Basophils Percent Auto 0.8 % (0-2); Eosinophils Absolute Auto 0.2 X10*3/uL (0.0-0.4); Eosinophils Percent Auto 2.7 % (0-4); Hematocrit 41.9 % (37.0-47.0); Hemoglobin 13.7 g/dl (12.0-16.0); Imm Gran Abs Auto 0.01 X10*3/uL (0.00-0.03); Imm Gran Pct Auto 0.1 % (0.0-0.4); Lymphocytes Absolute Auto 2.6 X10*3/uL (1.2-4.9); Lymphocytes Percent Auto 31.3 % (20-40); Mean Corpuscular HGB Conc 32.7 g/dl (31.0-35.0); Mean Corpuscular Hemoglobin 25.5 pg (27.0-33.0); Mean Platelet Volume 11.5 fL (9.4-12.3); Monocytes Absolute Auto 0.5 X10*3/uL (0.1-1.2); Monocytes Percent Auto 6.3 % (2-11); Neutrophils Absolute Auto 4.9 x10*3/uL (2.0-8.3); Neutrophils Percent Auto 58.8 % (45-73); Platelet Count 219 X10*3/uL (160-400); Red Blood Count 5.37 X10*6/uL (4.20-5.50); Red Cell Distribution Width 15.3 % (11.0-16.0); White Blood Count 8.4 X10*3/uL (4.8-10.8)
[2024-01-24 07:57] LABS: Bacteria Urine None Seen (None Seen); Hyaline Casts Urine 0-2 /LPF (0-2); RBC Urine 0-2 /HPF (0-2); Squamous Epithelial Cell Urine 0-2 /HPF (0-2); UACC Culture Trigger YES
[2024-01-24 08:00] LABS: Estimated Average Glucose 203 mg/dL; Hemoglobin A1c % 8.7 % (<6.0)
[2024-01-24 08:24] LABS: Creatinine Urine 95.47 mg/dL; Microalbum/Creatinine Ratio Ur 268.1 ug/mg cr (<30)
[2024-01-24 08:32] LABS: Alanine Aminotransferase 17 U/L (0-31); Albumin Level 4.2 g/dL (3.5-5.0); Alkaline Phosphatase 96 U/L (39-117); Anion Gap 14 (12-20); Aspartate Amino Transferase 15 U/L (5-31); Bilirubin Total 0.4 mg/dL (0.0-1.0); Blood Urea Nitrogen 18 mg/dL (9-16); Calcium 10.1 mg/dL (8.4-10.2); Carbon Dioxide 25 mmol/L (22-29); Chloride 105 mmol/L (96-108); Cholesterol 146 mg/dL (<200); Estimated Glomerular Filt Rate > 60; Glucose Fasting 253 mg/dL (60-99); HDL Cholesterol 33 mg/dL (>40); LDL Cholesterol Calculated 70 mg/dL (<100); Potassium 4.9 mmol/L (3.3-5.1); Sodium 139 mmol/L (135-145); Total Protein 7.2 g/dL (6.5-8.0); Triglycerides 216 mg/dL (<150)
[2024-01-24 08:35] LABS: TSH reflex Free T4 1.06 uIU/mL (0.32-4.0)
== END 2024-01-24 07:08 | disposition home or self-care (01) ==
LOC: HO.LAB 07:07
PROVIDERS: PCP Internal Medicine; Visit Provider Internal Medicine
DX: D64.9 Anemia, unspecified (principal); E78.00 Pure hypercholesterolemia, unspecified; E11.9 Type 2 diabetes mellitus without complications; E55.9 Vitamin D deficiency, unspecified; R82.90 Unspecified abnormal findings in urine
CPT/HCPCS: 36415; 80053; 80061; 81001; 82043; 82306; 82570; 83036; 84443; 85025; 87086

== ENCOUNTER 2024-01-25 16:27 | Outpatient (AMB) | payer OTHER, SELFPAY ==
[2024-01-25 16:28] VITALS: BP 140/86; PULSE 86; O2SAT 98; BMI 25.2
--- NOTE | 2024-01-25 16:28 | A.OFFPC_ITS ---
Vital Signs 01/25/24 16:28 Height 5 ft 7 in Weight 161 lb 0.4 oz BMI 25.2 BP 140/86 H Blood Pressure Location Lt brachial Position Sitting Pulse 86 Pulse Source Pulse Oximeter Pulse Oximetry (%) 98 Oxygen Delivery Method Room Air Intake Visit Reasons: DM, asthma, allergic rhinitis Allergies metformin Adverse Reaction (Unknown, Verified 01/25/24 16:56) diarrhea SEASONAL ALLERGIES Allergy (Unknown, Uncoded 01/25/24 16:56) ASTHMA Medication List - Last Reconciled 01/25/24 by Esdras Swann MD albuterol sulfate 2.5 mg (3 mL) inhalation Q4-6H PRN albuterol sulfate 90 mcg/actuation (ProAir HFA) 2 puffs inhalation Q4-6H PRN 30 days blood sugar diagnostic (FreeStyle Lite Strips) USE TO TEST DIRECTED dapagliflozin propanediol (Farxiga) 10 mg PO DAILY 90 days fluticasone propionate 50 mcg/actuation (Flonase Allergy Relief) 2 sprays intranasal DAILY glimepiride 2 mg PO QAM lancets (FreeStyle Lancets) USE DIRECTED DAILY loratadine 10 mg PO DAILY miscellaneous medical supply 1 ea miscellaneous DAILY montelukast (Singulair) 10 mg PO DAILY nebulizer accessories [employer] Tobacco use date assessed: 09/28/23 Dental Screening Dental Screen Date: 09/28/23 HPI DM, asthma, allergic rhinitis HPI Details Patient comes in today for her follow up visit States that she feels okay She denies any headaches or dizziness Denies any chest pains, no SOB No nausea/vomiting, no abdominal pain No change in bowel habits noted States that she has been out of her Farxiga for about a month now - is not sure why she was not able to get it refilled from her pharmacy when her Rx ran out She had her follow up labs done yesterday - to discuss her results [facility] Medical History (Updated 01/25/24 @ 23:53 by Esdras Swann MD) Vitamin D deficiency Bilateral primary osteoarthritis of hip Cervical spondylosis Primary osteoarthritis, right shoulder Bilateral hip pain Other bursal cyst, left ankle and foot Overweight (BMI 25.0-29.9) Dyslipidemia Asthma Diabetes mellitus Exposure to COVID-19 virus Surgical History History of knee replacement procedure of right knee History of bilateral breast reduction surgery History of hysterectomy Family History Father Diabetes Parkinson disease Mother Medical history unknown Alzheimer disease Social History Housing: House Alcohol intake: current Alcohol intake frequency: holidays/special occasions only Patient Tobacco Use Status: Former Tobacco user e-Cigarette/Vaping Use: Never Used Second Hand Smoke Exposure: No service: No Current occupational status: employed Cognitive needs: No Hearing needs: No Vision needs: Yes Questionnaire PHQ-9 Over the last 2 weeks, how often have you been bothered by any of the following problems? 1. Little interest or pleasure in doing things: several days 2. Feeling down, depressed, or hopeless: several days 3. Trouble falling or staying asleep, or sleeping too much: more than half the days 4. Feeling tired or having little energy: more than half the days 5. Poor appetite or overeating: more than half the days 6. Feeling bad about yourself - or that you are a failure or have let yourself or your family down: not at all 7. Trouble concentrating on things, such as reading the newspaper or watching television: not at all 8. Moving or speaking so slowly that other people could have noticed. Or the opposite - being so fidgety or restless that you have been moving around a lot more than usual: not at all 9. Thoughts that you would be better off or of hurting yourself in some way: not at all Total score: 8 Depression Screening Interpretation: Positive Depression Screening Follow-up: Existing condition and Declines treatment Depression Screening Done: Yes 42042 - PHQ-9 Billing: Yes Source: Developed by Drs. Kwesi Caraballo, Pia Rosales, Davy Velazquez and colleagues, with an educational giovany from [employer]. Thrive Questionnaire Date Thrive assessed: 01/25/24 I am a: Patient What is your living situation today?: I have a steady place to live Within the past 12 months, did the food you bought not last and you didn't have the money to get more?: Never true Within the past 12 months, did you worry whether your food would run out before you got money to buy more?: Never true Do you have trouble paying for medicines?: No Do you have trouble getting transportation to medical appointments?: No Do you have trouble paying your heating and electricity bill?: No Do you have trouble taking care of your child, family member or friend?: No Do you have trouble with day-to-day activities such as bathing, preparing meals, shopping, managing finances, etc.?: No Are you currently unemployed and looking for a job?: No Are you interested in more education?: No Please select the resources that you would like help with: None Currently or been in a relationship where the following occur: no concerns reported THRIVE Score: 0 AUDIT C Alcohol Use Questionnaire (AUDIT-C) 1. How often do you have a drink containing alcohol?: Monthly or less 2. How many drinks containing alcohol do you have on a typical day when you are drinking?: 1 or 2 3. How often do you have six or more drinks on one occasion?: Never Total Score: 1 Score Reviewed/Action Taken: Yes SALLY-7 AMB Questionnaire SALLY-7 Date SALLY - 7 assessed: 09/28/23 Source: Developed by Drs. Kwesi Caraballo, Pia Rosales, Davy Velazquez and colleagues, with an educational giovany from [employer]. Review of Systems Const Denies chills, Denies fatigue, Denies fever(s) and Denies headache(s) ENT Denies dysphagia, Denies dizziness, Denies otalgia, Denies headache(s), Reports neck pain (on and off), Denies odynophagia and Denies sore throat Card Denies chest pain, Denies irregular heart rhythm, Denies palpitations and Denies dyspnea Resp Denies cough and Denies dyspnea GI Denies abdominal pain, Denies constipation, Denies dysphagia, Denies diarrhea, Denies nausea, Denies odynophagia and Denies vomiting Denies difficulty voiding, Denies nocturia, Denies dysuria and Denies urinary urgency Musc Denies back pain, Reports arthralgias (over both hips and both shoulders) and Reports neck pain (on and off) Skin/Breast Denies rash Neuro Denies dizziness and Denies headache(s) Endo Denies fatigue and Denies palpitations Physical exam (Primary Care) Vital Signs: Last Vital Signs Pulse 86 01/25/24 16:28 BP 140/86 H 01/25/24 16:28 Pulse Ox 98 01/25/24 16:28 Oxygen Delivery Method Room Air 01/25/24 16:28 BMI result Body Mass Index 25.2 Tobacco/Smoking Status: Tobacco use Status Tobacco use date assessed 09/28/23 01/25/24 16:32 Patient Tobacco Use Status Former Tobacco user 01/25/24 16:32 e-Cigarette/Vaping Use Never Used 01/25/24 16:32 PHQ-9: PHQ-9 Score PHQ-9: Total score 8 01/25/24 16:57 Depression Screening Interpretation: Positive Depression Screening Follow-up: Existing condition and Declines treatment Thrive Assessment: Date of Thrive Assessment Date Thrive assessed 09/28/23 01/25/24 16:32 Currently or been in a relationship where the following occur: no concerns reported Const General: no acute distress and alert HENMT Ears: TM's normal bilaterally and EAC's normal Throat: Yes posterior oropharynx normal and Yes tonsils normal (no TP congestion noted) Neck Neck: Yes no lymphadenopathy and Yes supple Thyroid: Thyroid normal Resp Auscultation: clear to auscultation bilaterally, no rales and no wheezes Cardio Rate: regular rate Rhythm: regular rhythm Heart sounds: no murmurs GI Palpation (GI): Soft to palpation and nontender Auscultation: normal bowel sounds General: Yes no CVA tenderness Back/Spine/Pelvis Back: no CVA tenderness Cervical Spine: Cervical spine tenderness Thoracic/Lumbar Spine: No lumbar spinal tenderness Skin Rashes: no rashes Extrem General: Yes no clubbing, cyanosis or edema Results Reviewed Results Reviewed: Laboratory Tests 01/24/24 01/24/24 07:10 07:14 WBC 8.4 Hgb 13.7 Hct 41.9 Plt Count 219 Sodium 139 Potassium 4.9 Creatinine 0.75 Estimated GFR > 60 Fasting Glucose 253 H Hemoglobin A1c % 8.7 H Calcium 10.1 AST 15 ALT 17 Triglycerides 216 H Cholesterol 146 LDL Cholesterol, Calc 70 HDL Cholesterol 33 L 25-OH Vitamin D Total 24.0 L TSH 1.06 Ur Specific [place] 1.020 Urine Protein 30 (1+) H Urine Glucose (UA) Negative Urine Blood Negative Urine Nitrite Negative Ur Leukocyte Esterase Small (1+) H Microalb/Creat Ratio 268.1 H Assessment and Plan Assessment & Plan (1) Diabetes mellitus: Code(s): E11.9 - Type 2 diabetes mellitus without complications Qualifiers: Diabetes mellitus complication status: without complication Diabetes mellitus intermediate insulin use: without moth exterminator use Diabetes mellitus type: type 2 Qualified Code(s): E11.9 - Type 2 diabetes mellitus without complications Plan: Her HgbA1c was at 8.7% on her labs done yesterday (was previously at 7.9% a few months ago) - goal is < 7.0% Reinforced diabetic diet Continue Glimepiride 1 mg Q AM She was also on Farxiga 10 mg QD but somehow ran out of her Rx over a month ago and was not able to get her refills at her pharmacy Patient has not been able to tolerate Metformin in the past, even at low dose (diarrhea) Will start her back on Farxiga 10 mg QD TESFAYE - Rx sent to pharmacy Have cautioned patient that her microalbuminuria on her recent labs appears to be progressing and she really needs to try getting her diabetes back under control TESFAYE or she is risking a permanent decline in her renal function (2) Dyslipidemia: Code(s): E78.5 - Hyperlipidemia, unspecified Plan: Results of her labs done yesterday reviewed and discussed with patient Reinforced low-cholesterol diet Will recheck her labs and fasting lipids in 3 months for follow-up (3) Elevated blood pressure reading in office without diagnosis of hypertension: Code(s): R03.0 - Elevated blood-pressure reading, without diagnosis of hypertension Plan: Reinforced low sodium diet Patient states that her blood pressure being high right now is likely due to her just coming off work today States that she had a long and exhausting day at work today and is ready to just go home and get some rest She is reminded to continue monitoring her blood pressure regularly and reinforced BP of 120/80 or less to be considered normal (4) Asthma: Code(s): J45.909 - Unspecified asthma, uncomplicated Qualifiers: Asthma complication type: uncomplicated Asthma persistence: persistent Asthma severity: moderate Qualified Code(s): J45.40 - Moderate persistent asthma, uncomplicated Plan: Stable/controlled Continue Albuterol HFA 2 inhalations every 6 hours as needed (5) Allergic rhinitis: Code(s): J30.9 - Allergic rhinitis, unspecified Qualifiers: Allergic rhinitis seasonality: seasonal Allergic rhinitis trigger: unspecified Qualified Code(s): J30.2 - Other seasonal allergic rhinitis Plan: Continue Fluticasone 50 mcg nasal spray QD PRN and Loratadine 10 mg QD PRN (6) Vitamin D deficiency: Code(s): E55.9 - Vitamin D deficiency, unspecified Plan: She is advised that her Vitamin D level is still low on her recent labs Will start her on Vitamin D3 2000 units QD (7) Bilateral primary osteoarthritis of hip: Code(s): M16.0 - Bilateral primary osteoarthritis of hip Plan: X-rays of both hips done last year revealed (+) mild bilateral hip osteoarthritis Will consider referral to Orthopedics if her hip pains continue to get worse (8) Primary osteoarthritis, right shoulder: Code(s): M19.011 - Primary osteoarthritis, right shoulder Plan: X-rays of her right shoulder done last year in September 2022 revealed (+) mild OA changes She has been to physical therapy for her shoulder and neck pain and states that they have helped somewhat (9) Cervical spondylosis: Code(s): M47.812 - Spondylosis without myelopathy or radiculopathy, cervical region Plan: Cervical spine x-rays done back in September 2022 revealed (+) cervical spondylosis Patient has also been to physical therapy for her neck pain a few months ago, which she states helped somewhat with her symptoms Will refer her again to physical therapy as needed Plan Follow up in 3 months Orders: Orders Complete Blood Count Auto Diff 3 Months D64.9 - Anemia, unspecified Comprehensive [place]. Panel Fast 3 Months E78.00 - Pure hypercholesterolemia, unspecified Hemoglobin A1c 3 Months E11.9 - Type 2 diabetes mellitus without complications TSH reflex Free T4 3 Months E78.00 - Pure hypercholesterolemia, unspecified Lipid Panel 3 Months E78.00 - Pure hypercholesterolemia, unspecified Vitamin B12 and Folate 3 Months E53.8 - Deficiency of other specified B group vitamins Vitamin D 25-OH Total 3 Months E55.9 - Vitamin D deficiency, unspecified Microalbumin, Random (w Creat) 3 Months E11.9 - Type 2 diabetes mellitus without complications UA CC w/rflx Micro + Cult 3 Months R30.0 - Dysuria Medications: New cholecalciferol (vitamin D3) 50 mcg PO DAILY 90 caps 3RF 90 days E55.9 - Vitamin D deficiency, unspecified Refilled dapagliflozin propanediol (Farxiga) 10 mg PO DAILY 90 tabs 1RF 90 days Coding Level of Care Code Est Pt Level 4 (80073) Complex EM visit Add On G2211 Diagnoses Type 2 diabetes mellitus without complication, without long-term current use of insulin E11.9 Diabetes mellitus complication status: without complication Diabetes mellitus moth exterminator insulin use: without intermediate use Diabetes mellitus type: type 2 Dyslipidemia E78.5 Elevated blood pressure reading in office without diagnosis of hypertension R03.0 Moderate persistent asthma without complication J45.40 Asthma complication type: uncomplicated Asthma persistence: persistent Asthma severity: moderate Seasonal allergic rhinitis, unspecified trigger J30.2 Allergic rhinitis seasonality: seasonal Allergic rhinitis trigger: unspecified Vitamin D deficiency E55.9 Bilateral primary osteoarthritis of hip M16.0 Primary osteoarthritis, right shoulder M19.011 Cervical spondylosis M47.812
== END 2024-01-25 17:05 | disposition home or self-care (01) ==
PROVIDERS: PCP Internal Medicine; Visit Provider Internal Medicine
DX: E11.9 Type 2 diabetes mellitus without complications (principal); E78.5 Hyperlipidemia, unspecified; R03.0 Elevated blood-pressure reading, without diagnosis of hypertension; J45.40 Moderate persistent asthma, uncomplicated; J30.2 Other seasonal allergic rhinitis; E55.9 Vitamin D deficiency, unspecified; M16.0 Bilateral primary osteoarthritis of hip; M19.011 Primary osteoarthritis, right shoulder; M47.812 Spondylosis without myelopathy or radiculopathy, cervical region
CPT/HCPCS: 99214

== ENCOUNTER 2024-03-06 13:15 | Outpatient (AMB) | payer OTHER, SELFPAY ==
[2024-03-06 14:14] VITALS: BP 122/80; PULSE 73; TEMP 37; O2SAT 99; BMI 25.2
--- NOTE | 2024-03-06 14:14 | AM.OFFWIN_ITS ---
Intake Vital Signs 03/06/24 14:14 Height 5 ft 7 in Weight 161 lb BMI 25.2 BP 122/80 Blood Pressure Location Lt brachial Position Sitting Pulse 73 Pulse Source Pulse Oximeter Temp 98.6 F Temp Source Oral Pulse Oximetry (%) 99 Oxygen Delivery Method Room Air Intake Visit Reasons: EP RT ear buzzing/pressure Intake Note: pt c/o RT ear buzzing and pressure. Started yesterday Patient Tobacco Use Status: Former Tobacco user Allergies metformin Adverse Reaction (Unknown, Verified 03/06/24 14:25) diarrhea SEASONAL ALLERGIES Allergy (Unknown, Uncoded 03/06/24 14:25) ASTHMA Do you need a note to return to daycare/school/sports/work: No HPI EP RT ear buzzing/pressure HPI Details This note is constructed using voice recognition software. While every effort has been made to ensure accuracy, gemologist errors may have been included. The patient is a 63 year old female who presents to the clinic today with right ear buzzing in pressure. She notes a chronic history of sinus issues where she is pending a surgery for this. She was on Flonase for some time, however stopped as she did not feel that this was helpful. She also has a history of diabetes, so she tried to avoid excessive amounts of steroids as this tends to make her diabetes numbers worse. [facility] Medical History (Updated 01/25/24 @ 23:53 by Esdras Swann MD) Vitamin D deficiency Bilateral primary osteoarthritis of hip Cervical spondylosis Primary osteoarthritis, right shoulder Bilateral hip pain Other bursal cyst, left ankle and foot Overweight (BMI 25.0-29.9) Dyslipidemia Asthma Diabetes mellitus Exposure to COVID-19 virus Surgical History History of knee replacement procedure of right knee History of bilateral breast reduction surgery History of hysterectomy Family History Father Diabetes Parkinson disease Mother Medical history unknown Alzheimer disease Social History Housing: House Alcohol intake: current Alcohol intake frequency: holidays/special occasions only Patient Tobacco Use Status: Former Tobacco user e-Cigarette/Vaping Use: Never Used Second Hand Smoke Exposure: No service: No Current occupational status: employed Cognitive needs: No Hearing needs: No Vision needs: Yes Review of Systems Const All systems reviewed & are unremarkable except as noted in HPI and below Physical Exam Vital Signs: Last Vital Signs Temp 98.6 F 03/06/24 14:14 Pulse 73 03/06/24 14:14 BP 122/80 03/06/24 14:14 Pulse Ox 99 03/06/24 14:14 Oxygen Delivery Method Room Air 03/06/24 14:14 BMI result Body Mass Index 25.2 Const General: cooperative, healthy appearing, comfortable and no acute distress Orientation/consciousness: patient oriented x3 Limitations: no limitations HEENT Head: Yes normal to inspection Ears: hearing grossly normal bilaterally, external ears normal and TM abnormal (White fluid right more than left) retracted bilateral General nose exam: Normal external nose present, Normal nares present and No nasal discharge present Face and sinus: Yes normal facial exam and Yes sinuses nontender Mouth: Normal oral and palatal mucosa present and moist mucous membranes Throat: Yes tonsils normal, Yes uvula midline, Yes posterior oropharynx abnormal (Erythema), Yes postnasal drainage and Yes cobblestoning Eyes General: appearance normal, both eyes and all related structures Neck Neck: Yes normal visual inspection Resp Effort & Inspection: normal respiratory effort, able to speak in complete sentences, Actively coughing, no respiratory distress, not tachypneic, no tripod positioning and no use of accessory muscles Auscultation: clear to auscultation bilaterally Cardio Jugular venous distension: no JVD Rate: regular rate Rhythm: regular rhythm Heart sounds: S1 normal heart sound present, S2 normal heart sound present, no click, no gallops, no murmurs and no rubs Skin General skin exam: no rashes or lesions noted, elasticity normal and turgor normal Neuro General: patient oriented x3 Extrem General: Yes normal to inspection and Yes no clubbing, cyanosis or edema Assessment & Plan Assessment & Plan (1) Allergic rhinitis: Code(s): J30.9 - Allergic rhinitis, unspecified Qualifiers: Allergic rhinitis trigger: unspecified Allergic rhinitis seasonality: seasonal Qualified Code(s): J30.2 - Other seasonal allergic rhinitis Plan: Discussed symptomatic treatment including hydration, humidification, and sinus rinse. Advised trial of Flonase nasal spray again despite that it has not worked for her well in the past. Discussed systemic steroids, which patient would like to try but at a lower dose to avoid and reduce the risk of worsening glucose. Advised increased monitoring of glucose for any worsening. We will send steroid burst but at a lower dose to help hopefully illicit anti- inflammatory effects while not worsening her diabetes. Advised follow up with PCP with worsening or failure to resolve. (2) Diabetes mellitus: Code(s): E11.9 - Type 2 diabetes mellitus without complications Qualifiers: Diabetes mellitus type: type 2 Diabetes mellitus joint terminal attack controller insulin use: without assisted use Diabetes mellitus complication status: without complication Qualified Code(s): E11.9 - Type 2 diabetes mellitus without complications Plan: Advised to increase monitoring of glucose levels in setting of using steroid burst as this may worsen readings. Plan See above for full details and plan. Medications: New prednisone 20 mg PO DAILY 3 days 3 tabs 0RF Coding Level of Care Code Est Pt Level 4 (70566) Diagnoses Seasonal allergic rhinitis, unspecified trigger J30.2 Allergic rhinitis trigger: unspecified Allergic rhinitis seasonality: seasonal Type 2 diabetes mellitus without complication, without long-term current use of insulin E11.9 Diabetes mellitus type: type 2 Diabetes mellitus joint terminal attack controller insulin use: without assisted use Diabetes mellitus complication status: without complication
== END 2024-03-06 15:32 | disposition home or self-care (01) ==
PROVIDERS: PCP Internal Medicine; Visit Provider Registered Nurse
DX: J30.2 Other seasonal allergic rhinitis (principal); E11.9 Type 2 diabetes mellitus without complications
CPT/HCPCS: 99214

== ENCOUNTER 2024-05-03 15:40 | Outpatient (AMB) | payer OTHER, SELFPAY ==
[2024-05-03 16:02] VITALS: BP 120/84; PULSE 83; O2SAT 98; BMI 24.3
--- NOTE | 2024-05-03 16:02 | A.OFFPC_ITS ---
Vital Signs 05/03/24 16:02 Height 5 ft 7 in Weight 155 lb 2 oz BMI 24.3 BP 120/84 Blood Pressure Location Lt brachial Position Sitting Pulse 83 Pulse Source Pulse Oximeter Pulse Oximetry (%) 98 Oxygen Delivery Method Room Air Intake Visit Reasons: 3 month f/u Operations Manager Required: No Accompanied by: Self / Same As Patient Allergies metformin Adverse Reaction (Unknown, Verified 05/03/24 16:47) diarrhea SEASONAL ALLERGIES Allergy (Unknown, Uncoded 05/03/24 16:47) ASTHMA Medication List - Last Reconciled 05/03/24 by Esdras Swann MD albuterol sulfate 2.5 mg (3 mL) inhalation Q4-6H PRN albuterol sulfate 90 mcg/actuation (ProAir HFA) 2 puffs inhalation Q4-6H PRN 30 days blood sugar diagnostic (FreeStyle Lite Strips) USE TO TEST DIRECTED cholecalciferol (vitamin D3) 50 mcg PO DAILY 90 days dapagliflozin propanediol (Farxiga) 10 mg PO DAILY 90 days fluticasone propionate 50 mcg/actuation (Flonase Allergy Relief) 2 sprays intranasal DAILY glimepiride 2 mg PO QAM lancets (FreeStyle Lancets) USE DIRECTED DAILY loratadine 10 mg PO DAILY miscellaneous medical supply 1 ea miscellaneous DAILY montelukast (Singulair) 10 mg PO DAILY nebulizer accessories [employer] prednisone 20 mg PO DAILY 3 days Tobacco use date assessed: 05/03/24 Dental Screening Dental Screen Date: 05/03/24 Did you have a dental visit in the last 12 months?: Yes Did you have a dental problem in the last 6 months where you did not have access to dental care?: No Was dental information given to patient?: Patient has dentist HPI 3 month f/u HPI Details Patient comes in today for her follow up visit States that she has been experiencing increasing pain in both of her hips lately States that she often likes to take walks, either alone or with her in order to stay active but her recently increasing hip pain is starting to limit her ability to walk as much as she used to She denies any recent injury or trauma to her hips and has never had any hip surgeries in the past States that she feels okay otherwise She denies any headaches or dizziness Denies any chest pains, no SOB No nausea/vomiting, no abdominal pain No change in bowel habits noted She was not able to get her follow up labs done prior to her visit here today She would also like to get her flu shot here today [facility] Medical History (Updated 05/04/24 @ 09:10 by Esdras Swann MD) Vitamin D deficiency Bilateral primary osteoarthritis of hip Cervical spondylosis Primary osteoarthritis, right shoulder Other bursal cyst, left ankle and foot Overweight (BMI 25.0-29.9) Dyslipidemia Asthma Diabetes mellitus Exposure to COVID-19 virus Surgical History History of knee replacement procedure of right knee History of bilateral breast reduction surgery History of hysterectomy Family History Father Diabetes Parkinson disease Mother Medical history unknown Alzheimer disease Social History Housing: House Alcohol intake: current Alcohol intake frequency: holidays/special occasions only Patient Tobacco Use Status: Former Tobacco user e-Cigarette/Vaping Use: Never Used Second Hand Smoke Exposure: No service: No Current occupational status: employed Cognitive needs: No Hearing needs: No Vision needs: Yes Questionnaire PHQ-9 Over the last 2 weeks, how often have you been bothered by any of the following problems? 1. Little interest or pleasure in doing things: several days 2. Feeling down, depressed, or hopeless: several days 3. Trouble falling or staying asleep, or sleeping too much: more than half the days 4. Feeling tired or having little energy: more than half the days 5. Poor appetite or overeating: more than half the days 6. Feeling bad about yourself - or that you are a failure or have let yourself or your family down: not at all 7. Trouble concentrating on things, such as reading the newspaper or watching television: not at all 8. Moving or speaking so slowly that other people could have noticed. Or the opposite - being so fidgety or restless that you have been moving around a lot more than usual: not at all 9. Thoughts that you would be better off or of hurting yourself in some way: not at all Total score: 8 Depression Screening Interpretation: Positive Depression Screening Follow-up: Existing condition and Declines treatment Depression Screening Done: Yes 00106 - PHQ-9 Billing: Yes Source: Developed by Drs. Kwesi Caraballo, Pia Rosales, Davy Velazquez and colleagues, with an educational giovany from [employer] Thrive Questionnaire Date Thrive assessed: 05/03/24 I am a: Patient What is your living situation today?: I have a steady place to live Within the past 12 months, did the food you bought not last and you didn't have the money to get more?: Never true Within the past 12 months, did you worry whether your food would run out before you got money to buy more?: Never true Do you have trouble paying for medicines?: No Do you have trouble getting transportation to medical appointments?: No Do you have trouble paying your heating and electricity bill?: No Do you have trouble taking care of your child, family member or friend?: No Do you have trouble with day-to-day activities such as bathing, preparing meals, shopping, managing finances, etc.?: No Are you currently unemployed and looking for a job?: No Are you interested in more education?: No Please select the resources that you would like help with: None Currently or been in a relationship where the following occur: No concerns reported THRIVE Score: 0 AUDIT C Alcohol Use Questionnaire (AUDIT-C) 1. How often do you have a drink containing alcohol?: Monthly or less 2. How many drinks containing alcohol do you have on a typical day when you are drinking?: 1 or 2 3. How often do you have six or more drinks on one occasion?: Never Total Score: 1 Score Reviewed/Action Taken: Yes SALLY-7 AMB Questionnaire SALLY-7 Date SALLY - 7 assessed: 05/03/24 Feeling nervous, anxious, or on edge: 0 = Not at all Not being able to stop or control worryin = Not at all Worrying too much about different things: 0 = Not at all Trouble relaxin = Not at all Being so restless that it is hard to sit still: 0 = Not at all Becoming easily annoyed or irritable: 0 = Not at all Feeling afraid as if something awful might happen: 0 = Not at all Total SALLY-7 score (0-4 normal; 5-9 mild; 10-14 moderate; 15-21 severe): 0 Source: Developed by Drs. Kwesi Caraballo, Pia Rosales, Davy Velazquez and colleagues, with an educational giovany from [employer]. Review of Systems Const Denies chills, Denies fatigue, Denies fever(s) and Denies headache(s) ENT Denies dysphagia, Denies dizziness, Denies otalgia, Denies headache(s), Reports neck pain (on and off), Denies odynophagia and Denies sore throat Card Denies chest pain, Denies irregular heart rhythm, Denies palpitations and Denies dyspnea Resp Denies cough and Denies dyspnea GI Denies abdominal pain, Denies constipation, Denies dysphagia, Denies diarrhea, Denies nausea, Denies odynophagia and Denies vomiting Denies difficulty voiding, Denies nocturia, Denies dysuria and Denies urinary urgency Musc Denies back pain, Reports arthralgias (over both hips and both shoulders - hip pain increasing lately) and Reports neck pain (on and off) Skin/Breast Denies rash Neuro Denies dizziness and Denies headache(s) Endo Denies fatigue and Denies palpitations Physical exam (Primary Care) Vital Signs: Last Vital Signs Pulse 83 05/03/24 16:02 BP 120/84 05/03/24 16:02 Pulse Ox 98 05/03/24 16:02 Oxygen Delivery Method Room Air 05/03/24 16:02 BMI result Body Mass Index 24.3 Tobacco/Smoking Status: Tobacco use Status Tobacco use date assessed 05/03/24 05/03/24 16:04 Patient Tobacco Use Status Former Tobacco user 05/03/24 16:04 e-Cigarette/Vaping Use Never Used 05/03/24 16:04 PHQ-9: PHQ-9 Score PHQ-9: Total score 8 05/03/24 16:54 Depression Screening Interpretation: Positive Depression Screening Follow-up: Ex isting condition and Declines treatment Thrive Assessment: Date of Thrive Assessment Date Thrive assessed 05/03/24 05/03/24 16:04 Currently or been in a relationship where the following occur: No concerns reported Const General: no acute distress and alert HENMT Ears: TM's normal bilaterally and EAC's normal Throat: Yes posterior oropharynx normal and Yes tonsils normal (no TP congestion noted) Neck Neck: Yes no lymphadenopathy and Yes supple Thyroid: Thyroid normal Resp Auscultation: clear to auscultation bilaterally, no rales and no wheezes Cardio Rate: regular rate Rhythm: regular rhythm Heart sounds: no murmurs GI Palpation (GI): Soft to palpation and nontender Auscultation: normal bowel sounds General: Yes no CVA tenderness Back/Spine/Pelvis Back: no CVA tenderness Cervical Spine: Cervical spine tenderness Thoracic/Lumbar Spine: No lumbar spinal tenderness Skin Rashes: no rashes Extrem General: Yes no clubbing, cyanosis or edema Office Procedures Flu Questionnaire Does the patient have a severe egg allergy?: No Does the patient have severe life threatening allergies?: No Does the patient have a fever or illness today?: No Has the patient ever had Guillain-[place] Syndrome?: No Has the patient ever had any past reaction to a flu shot?: No Immunizations Fluarix Triv 1310-1504 (PF) 45 mcg (15 mcg x 3)/0.5 mL IM syringe Performing Provider: Esdras Swann MD Performing [facility] [place] [facility] Administered by: KRISTEN Roque on 05/03/24 16:25 Dose Route Admin Location Dispensed Lot Number Expiration Date [facility] Preassembler And Inspector 0.5 mL IM Left Deltoid 0.5 mL [id number] 01/29/25 [id number] [employer] 2 VIS Given Date VIS Provided VIS Publication Date 05/03/24 Single Vaccine 21 Eligibility Eligibility Date Funding Source Not [facility] Eligible 05/03/24 Private Coding Level of Care Code Est Pt Level 4 (37769) Diagnoses Type 2 diabetes mellitus without complication, without long-term current use of insulin E11.9 Diabetes mellitus type: type 2 Diabetes mellitus halfway insulin use: without halfway use Diabetes mellitus complication status: without complication Dyslipidemia E78.5 Moderate persistent asthma without complication J45.40 Asthma severity: moderate Asthma persistence: persistent Asthma complication type: uncomplicated Seasonal allergic rhinitis, unspecified trigger J30.2 Allergic rhinitis trigger: unspecified Allergic rhinitis seasonality: seasonal Vitamin D deficiency E55.9 Bilateral primary osteoarthritis of hip M16.0 Primary osteoarthritis, right shoulder M19.011 Cervical spondylosis M47.812 Assessment & Plan Assessment & Plan (1) Diabetes mellitus: Code(s): E11.9 - Type 2 diabetes mellitus without complications Category: Medical Qualifiers: Diabetes mellitus type: type 2 Diabetes mellitus halfway insulin use: without exterminator helper termite use Diabetes mellitus complication status: without complication Qualified Code(s): E11.9 - Type 2 diabetes mellitus without complications Plan: Patient's HgbA1c was at 8.7% on her labs done back in January 2024 and it was previously at 7.9% a few months prior to that) - goal is < 7.0% She has not been able to get her follow up labs done yet to update this due to no transportation - states that she will try to get them done sometime in the next few days Reinforced diabetic diet Continue Glimepiride 1 mg Q AM abd Farxiga 10 mg QD Patient has not been able to tolerate Metformin in the past, even at low dose (diarrhea) Have again cautioned patient that her microalbuminuria on her recent labs appears to be progressing and she needs to try getting her diabetes back under control TESFAYE to try to help preserve her renal function as much as possible (2) Dyslipidemia: Code(s): E78.5 - Hyperlipidemia, unspecified Category: Medical Plan: She has not been able to get her follow up labs done yet due to no transportation and states that she will try to get these done sometime in the next few days Reinforced low-cholesterol diet Will recheck her labs and fasting lipids in 3 months for follow-up (3) Asthma: Code(s): J45.909 - Unspecified asthma, uncomplicated Category: Medical Qualifiers: Asthma severity: moderate Asthma persistence: persistent Asthma complication type: uncomplicated Qualified Code(s): J45.40 - Moderate persistent asthma, uncomplicated Plan: Stable/controlled Continue Albuterol HFA 2 inhalations every 6 hours as needed (4) Allergic rhinitis: Code(s): J30.9 - Allergic rhinitis, unspecified Category: Medical Qualifiers: Allergic rhinitis trigger: unspecified Allergic rhinitis seasonality: seasonal Qualified Code(s): J30.2 - Other seasonal allergic rhinitis Plan: Continue Fluticasone 50 mcg nasal spray QD PRN and Loratadine 10 mg QD PRN (5) Vitamin D deficiency: Code(s): E55.9 - Vitamin D deficiency, unspecified Category: Medical Plan: Continue Vitamin D3 2000 units QD (6) Bilateral primary osteoarthritis of hip: Code(s): M16.0 - Bilateral primary osteoarthritis of hip Category: Medical Plan: X-rays of both hips done back in 2020 revealed (+) mild bilateral hip osteoarthritis As her hip pains have been increasing lately, will have her get repeat x-rays of both hips to update them and see if there is any progression of her arthritis Will consider referral to Orthopedics but will wait and see how her x-rays come out first (7) Primary osteoarthritis, right shoulder: Code(s): M19.011 - Primary osteoarthritis, right shoulder Category: Medical Plan: X-rays of her right shoulder done last year in September 2022 revealed (+) mild OA changes She has been to physical therapy for her shoulder and neck pain and states that they have helped somewhat (8) Cervical spondylosis: Code(s): M47.812 - Spondylosis without myelopathy or radiculopathy, cervical region Category: Medical Plan: Cervical spine x-rays done back in September 2022 revealed (+) cervical spondylosis Patient has also been to physical therapy for her neck pain a few months ago, which she states helped somewhat with her symptoms Will refer her again to physical therapy as needed Plan Per request, flu vaccine given today Follow up in 3 months Orders: Orders Influenza [id number] Immunization 05/03/24 Z23 - Encounter for immunization XR hips TRISTIN min 3V 05/03/24 M25.551 - Pain in right hip, M25.552 - Pain in left hip Microalbumin, Random (w Creat) 3 Months E11.9 - Type 2 diabetes mellitus without complications TSH reflex Free T4 3 Months E78.00 - Pure hypercholesterolemia, unspecified Vitamin D 25-OH Total 3 Months E55.9 - Vitamin D deficiency, unspecified Complete Blood Count Auto Diff 3 Months D64.9 - Anemia, unspecified Comprehensive [place]. Panel Fast 3 Months E78.00 - Pure hypercholesterolemia, unspecified Lipid Panel 3 Months E78.00 - Pure hypercholesterolemia, unspecified Hemoglobin A1c 3 Months E11.9 - Type 2 diabetes mellitus without complications UA CC w/rflx Micro + Cult 3 Months R30.0 - Dysuria
== END 2024-05-03 17:00 | disposition home or self-care (01) ==
PROVIDERS: PCP Internal Medicine; Visit Provider Internal Medicine
DX: E11.9 Type 2 diabetes mellitus without complications (principal); E78.5 Hyperlipidemia, unspecified; J45.40 Moderate persistent asthma, uncomplicated; J30.2 Other seasonal allergic rhinitis; E55.9 Vitamin D deficiency, unspecified; M16.0 Bilateral primary osteoarthritis of hip; M19.011 Primary osteoarthritis, right shoulder; M47.812 Spondylosis without myelopathy or radiculopathy, cervical region; Z23 Encounter for immunization

== ENCOUNTER → 2024-05-03 15:40 | Outpatient (BNVA) | payer OTHER, SELFPAY | PROVIDERS: PCP Internal Medicine; Visit Provider Internal Medicine | DX: E11.9 Type 2 diabetes mellitus without complications (principal); E78.5 Hyperlipidemia, unspecified; J45.40 Moderate persistent asthma, uncomplicated; J30.2 Other seasonal allergic rhinitis; E55.9 Vitamin D deficiency, unspecified; M16.0 Bilateral primary osteoarthritis of hip; M19.011 Primary osteoarthritis, right shoulder; M47.812 Spondylosis without myelopathy or radiculopathy, cervical region; Z79.899 Other long term (current) drug therapy; Z23 Encounter for immunization | CPT/HCPCS: 90471; 90656; 96127 ==

== ENCOUNTER 2024-07-03 08:47 | Outpatient (REF) | payer OTHER, SELFPAY ==
--- NOTE | ~2024-07-03 | MM_ITS ---
EXAMINATION: MM SCREENING DIGITAL BREAST TOMOSYNTHESIS, BILATERAL CLINICAL INFORMATION: Screening. Asymptomatic. COMPARISON: Mammography: Comparison is made with available priors TECHNIQUE: Digital breast mammography with tomosynthesis is performed in both the craniocaudal and mediolateral oblique views along with computer-aided detection (CAD). FINDINGS: There are scattered areas of fibroglandular density (ACR BI-RADS breast composition Category b). Bilateral reduction mammoplasty. There are no significant masses, abnormal calcifications, or other abnormalities. MM/MM tomosynthesis screening BI IMPRESSION: No mammographic evidence of malignancy. ASSESSMENT: BI-RADS BI-RADS 2 - Benign Findings RECOMMENDATION: Routine annual mammography screening. 1 year F/U This examination should not preclude the clinical evaluation of a suspicious palpable abnormality. This patient's information was entered into a reminder system with a target due date for their next mammogram. Electronically signed by: Evelyn Nevarez DO 07/07/2024 10:48 AM PRISCILLA
== END 2024-07-03 08:48 | disposition home or self-care (01) ==
LOC: HO.MAMMO 08:47
PROVIDERS: PCP Internal Medicine; Visit Provider Internal Medicine
DX: Z12.31 Encounter for screening mammogram for malignant neoplasm of breast (principal)
CPT/HCPCS: 77063; 77067

== ENCOUNTER → 2024-07-03 09:00 | Outpatient (BNV) | payer OTHER, SELFPAY | PROVIDERS: PCP Internal Medicine; Visit Provider Internal Medicine | DX: Z12.31 Encounter for screening mammogram for malignant neoplasm of breast (principal) | CPT/HCPCS: 77063; 77067 ==

== ENCOUNTER 2024-08-25 07:34 | Outpatient (REF) | payer OTHER, SELFPAY ==
--- NOTE | ~2024-08-25 | XR_ITS ---
EXAMINATION: XR BILATERAL HIPS WITH AP PELVIS CLINICAL INFORMATION: M25.551 - Pain in right hip COMPARISON: April 08, 2021. TECHNIQUE: AP view of the pelvis and single views of each hip were obtained. FINDINGS: No fracture. Hip joint spaces are maintained. Alignment is anatomic. Sacroiliac joints and pubic symphysis are normal. No joint space narrowing . XR/XR hip TRISTIN min 3V IMPRESSION: Mild osteoarthrosis without acute fracture or dislocation, both hips. Electronically signed by: Denzel Gomez MD 08/28/2024 09:56 AM EST
[2024-08-25 08:17] LABS: MANUAL DIFF FLAG NO
[2024-08-25 09:44] LABS: Basophils Absolute Auto 0.1 X10*3/uL (0.0-0.2); Basophils Percent Auto 0.7 % (0-2); Eosinophils Absolute Auto 0.2 X10*3/uL (0.0-0.4); Eosinophils Percent Auto 2.6 % (0-4); Hematocrit 45.6 % (37.0-47.0); Hemoglobin 14.4 g/dl (12.0-16.0); Imm Gran Abs Auto 0.02 X10*3/uL (0.00-0.03); Imm Gran Pct Auto 0.3 % (0.0-0.4); Lymphocytes Absolute Auto 2.1 X10*3/uL (1.2-4.9); Lymphocytes Percent Auto 29.6 % (20-40); Mean Corpuscular HGB Conc 31.6 g/dl (31.0-35.0); Mean Corpuscular Hemoglobin 24.7 pg (27.0-33.0); Mean Corpuscular Volume 78.1 fL (80.0-98.0); Mean Platelet Volume 11.4 fL (9.4-12.3); Monocytes Absolute Auto 0.5 X10*3/uL (0.1-1.2); Monocytes Percent Auto 6.4 % (2-11); Neutrophils Absolute Auto 4.4 x10*3/uL (2.0-8.3); Neutrophils Percent Auto 60.4 % (45-73); Platelet Count 229 X10*3/uL (160-400); Red Blood Count 5.84 X10*6/uL (4.20-5.50); Red Cell Distribution Width 17.2 % (11.0-16.0); White Blood Count 7.2 X10*3/uL (4.8-10.8)
[2024-08-25 09:52] LABS: Appearance Urine Clear; Color Urine Yellow; Glucose Urine UA >=1000 mg/dL (Negative); Leukocyte Esterase Urine Negative (Negative); Nitrite Urine Negative (Negative); PH 5.5 (5.0-9.0); Specific Gravity - Urine >= 1.030 (1.005-1.025); UMIC TRIGGER UACC YES; Urine Blood Negative (Negative); Urine Ketones Negative (Negative); Urine Protein Trace mg/dL (Neg-Trace)
[2024-08-25 09:58] LABS: Bacteria Urine None Seen (None Seen); Hyaline Casts Urine 0-2 /LPF (0-2); RBC Urine 0-2 /HPF (0-2); Squamous Epithelial Cell Urine 0-2 /HPF (0-2); WBC Urine 0-5 /HPF (0-5)
[2024-08-25 10:06] LABS: Estimated Average Glucose 169 mg/dL; Hemoglobin A1C 219.8295 umol/L; Hemoglobin A1c % 7.5 % (<6.0)
[2024-08-25 11:14] LABS: Folate 7.2 ng/mL (> or = 4.0); Vitamin B12 733 pg/mL (200-900)
[2024-08-25 11:48] LABS: Creatinine Urine 59.09 mg/dL; Microalbum/Creatinine Ratio Ur 152.3 ug/mg cr (<30)
[2024-08-25 13:13] LABS: Alanine Aminotransferase 23 U/L (0-31); Albumin Level 4.6 g/dL (3.5-5.0); Anion Gap 12 (12-20); Aspartate Amino Transferase 26 U/L (5-31); Bilirubin Total 0.3 mg/dL (0.0-1.0); Blood Urea Nitrogen 23 mg/dL (9-16); Carbon Dioxide 26 mmol/L (22-29); Chloride 109 mmol/L (96-108); Cholesterol 148 mg/dL (<200); Estimated Glomerular Filt Rate > 60; Glucose Fasting 161 mg/dL (60-99); HDL Cholesterol 36 mg/dL (>40); LDL Cholesterol Calculated 87 mg/dL (<100); Sodium 142 mmol/L (135-145); Total Protein 7.8 g/dL (6.5-8.0); Triglycerides 125 mg/dL (<150)
[2024-08-25 13:31] LABS: TSH reflex Free T4 1.13 uIU/mL (0.32-4.0); Vitamin D 25-OH Total 31.3 ng/mL (>30)
[2024-08-25 14:15] LABS: Alkaline Phosphatase 81 U/L (39-117)
== END 2024-08-25 07:35 | disposition home or self-care (01) ==
LOC: HO.XRAY 07:34
PROVIDERS: PCP Internal Medicine; Visit Provider Internal Medicine
DX: E78.00 Pure hypercholesterolemia, unspecified (principal); E53.8 Deficiency of other specified B group vitamins; E55.9 Vitamin D deficiency, unspecified; E11.9 Type 2 diabetes mellitus without complications; D64.9 Anemia, unspecified; M25.551 Pain in right hip; M25.552 Pain in left hip
CPT/HCPCS: 36415; 73522; 80053; 80061; 81001; 82043; 82306; 82570; 82607; 82746; 83036; 84443; 85025

== ENCOUNTER → 2024-08-25 08:19 | Outpatient (BNV) | payer OTHER, SELFPAY | PROVIDERS: PCP Internal Medicine; Visit Provider Radiology Diagnostic Radiology | DX: M25.551 Pain in right hip (principal) | CPT/HCPCS: 73522 ==

== ENCOUNTER 2024-08-29 15:41 | Outpatient (AMB) | payer OTHER, SELFPAY ==
[2024-08-29 15:55] VITALS: BP 132/88; PULSE 73; O2SAT 98; BMI 24.5
--- NOTE | 2024-08-29 15:55 | A.OFFPC_ITS ---
Vital Signs 08/29/24 15:55 Height 5 ft 7 in Weight 156 lb 8 oz BMI 24.5 BP 132/88 Blood Pressure Location Lt brachial Position Sitting Pulse 73 Pulse Source Pulse Oximeter Pulse Oximetry (%) 98 Oxygen Delivery Method Room Air Intake Visit Reasons: [place] Claims Agent Right Of Way Required: No Accompanied by: Self / Same As Patient Allergies metformin Adverse Reaction (Unknown, Verified 08/29/24 16:37) diarrhea SEASONAL ALLERGIES Allergy (Unknown, Uncoded 08/29/24 16:37) ASTHMA Medication List - Last Reconciled 08/29/24 by Esdras Swann MD albuterol sulfate 2.5 mg (3 mL) inhalation Q4-6H PRN blood sugar diagnostic (FreeStyle Lite Strips) USE TO TEST DIRECTED cholecalciferol (vitamin D3) 50 mcg PO DAILY 90 days dapagliflozin propanediol (Farxiga) 10 mg PO DAILY 90 days fluticasone propionate 50 mcg/actuation (Flonase Allergy Relief) 2 sprays intranasal DAILY glimepiride 2 mg PO QAM lancets (FreeStyle Lancets) USE DIRECTED DAILY loratadine 10 mg PO DAILY miscellaneous medical supply 1 ea miscellaneous DAILY montelukast (Singulair) 10 mg PO DAILY nebulizer accessories [employer] Ventolin HFA 90 mcg/actuation (albuterol sulfate) 2 puffs inhalation Q4-6H PRN 30 days NS Tobacco use date assessed: 08/29/24 Dental Screening Dental Screen Date: 08/29/24 Did you have a dental visit in the last 12 months?: Yes Did you have a dental problem in the last 6 months where you did not have access to dental care?: No Was dental information given to patient?: Patient has dentist HPI [place] HPI Details Patient comes in today for her follow up visit States that she feels okay She denies any headaches or dizziness Denies any chest pains, no SOB No nausea/vomiting, no abdominal pain No change in bowel habits noted She had her follow up labs done a few days ago - to discuss her results She would also like to know how her hip x-rays done a couple of months ago came out States that she no longer has the hip pains that she had back in May 2024 and has started exercising regularly again recently [facility] Medical History Vitamin D deficiency Bilateral primary osteoarthritis of hip Cervical spondylosis Primary osteoarthritis, right shoulder Other bursal cyst, left ankle and foot Overweight (BMI 25.0-29.9) Dyslipidemia Asthma Diabetes mellitus Exposure to COVID-19 virus Surgical History History of knee replacement procedure of right knee History of bilateral breast reduction surgery History of hysterectomy Family History Father Diabetes Parkinson disease Mother Medical history unknown Alzheimer disease Social History Housing: House Alcohol intake: current Alcohol intake frequency: holidays/special occasions only Patient Tobacco Use Status: Former Tobacco user e-Cigarette/Vaping Use: Never Used Second Hand Smoke Exposure: No service: No Current occupational status: employed Cognitive needs: No Hearing needs: No Vision needs: Yes Questionnaire PHQ-9 Over the last 2 weeks, how often have you been bothered by any of the following problems? 1. Little interest or pleasure in doing things: several days 2. Feeling down, depressed, or hopeless: several days 3. Trouble falling or staying asleep, or sleeping too much: more than half the days 4. Feeling tired or having little energy: more than half the days 5. Poor appetite or overeating: more than half the days 6. Feeling bad about yourself - or that you are a failure or have let yourself or your family down: not at all 7. Trouble concentrating on things, such as reading the newspaper or watching television: not at all 8. Moving or speaking so slowly that other people could have noticed. Or the opposite - being so fidgety or restless that you have been moving around a lot more than usual: not at all 9. Thoughts that you would be better off or of hurting yourself in some way: not at all Total score: 8 Depression Screening Interpretation: Positive Depression Screening Follow-up: Existing condition and Declines treatment Depression Screening Done: Yes 65415 - PHQ-9 Billing: Yes Source: Developed by Drs. Kwesi Caraballo, Pia B.W. Davy Rosales and colleagues, with an educational giovany from [employer]. Thrive Questionnaire Date Thrive assessed: 08/29/24 I am a: Patient What is your living situation today?: I have a steady place to live Within the past 12 months, did the food you bought not last and you didn't have the money to get more?: Never true Within the past 12 months, did you worry whether your food would run out before you got money to buy more?: Never true Do you have trouble paying for medicines?: No Do you have trouble getting transportation to medical appointments?: No Do you have trouble paying your heating and electricity bill?: No Do you have trouble taking care of your child, family member or friend?: No Do you have trouble with day-to-day activities such as bathing, preparing meals, shopping, managing finances, etc.?: No Are you currently unemployed and looking for a job?: No Are you interested in more education?: No Please select the resources that you would like help with: None Currently or been in a relationship where the following occur: No concerns reported THRIVE Score: 0 AUDIT C Alcohol Use Questionnaire (AUDIT-C) 1. How often do you have a drink containing alcohol?: Monthly or less 2. How many drinks containing alcohol do you have on a typical day when you are drinking?: 1 or 2 3. How often do you have six or more drinks on one occasion?: Never Total Score: 1 Score Reviewed/Action Taken: Yes SALLY-7 AMB Questionnaire SALLY-7 Date SALLY - 7 assessed: 08/29/24 Feeling nervous, anxious, or on edge: 0 = Not at all Not being able to stop or control worryin = Not at all Worrying too much about different things: 0 = Not at all Trouble relaxin = Not at all Being so restless that it is hard to sit still: 0 = Not at all Becoming easily annoyed or irritable: 0 = Not at all Feeling afraid as if something awful might happen: 0 = Not at all Total SALLY-7 score (0-4 normal; 5-9 mild; 10-14 moderate; 15-21 severe): 0 Source: Developed by Drs. Kwesi Caraballo, Davy Santizo and colleagues, with an educational giovany from [employer]. Review of Systems Const Denies chills, Denies fatigue, Denies fever(s) and Denies headache(s) ENT Denies dysphagia, Denies dizziness, Denies otalgia, Denies headache(s), Reports neck pain (on and off), Denies odynophagia and Denies sore throat Card Denies chest pain, Denies irregular heart rhythm, Denies palpitations and Denies dyspnea Resp Denies chest congestion, Denies cough and Denies dyspnea GI Denies abdominal pain, Denies constipation, Denies dysphagia, Denies diarrhea, Denies nausea, Denies odynophagia and Denies vomiting Denies difficulty voiding, Denies nocturia, Denies dysuria and Denies urinary urgency Musc Denies back pain, Reports arthralgias (on and off over both shoulders; her previous hip pains have improved) and Reports neck pain (on and off) Skin/Breast Denies rash Neuro Denies dizziness and Denies headache(s) Endo Denies fatigue and Denies palpitations Physical exam (Primary Care) Vital Signs: Last Vital Signs Pulse 73 08/29/24 15:55 BP 132/88 08/29/24 15:55 Pulse Ox 98 08/29/24 15:55 Oxygen Delivery Method Room Air 08/29/24 15:55 BMI result Body Mass Index 24.5 Tobacco/Smoking Status: Tobacco use Status Tobacco use date assessed 08/29/24 08/29/24 16:05 Patient Tobacco Use Status Former Tobacco user 08/29/24 16:05 e-Cigarette/Vaping Use Never Used 08/29/24 16:05 PHQ-9: PHQ-9 Score PHQ-9: Total score 8 08/29/24 16:59 Depression Screening Interpretation: Positive Depression Screening Follow-up: Existing condition and Declines treatment Thrive Assessment: Date of Thrive Assessment Date Thrive assessed 08/29/24 08/29/24 16:05 Currently or been in a relationship where the following occur: No concerns reported Const General: no acute distress and alert HENMT Ears: TM's normal bilaterally and EAC's normal Throat: Yes posterior oropharynx normal and Yes tonsils normal (no TP congestion noted) Neck Neck: Yes supple and No lymphadenopathy Thyroid: Thyroid normal Resp Auscultation: clear to auscultation bilaterally, no rales and no wheezes Cardio Rate: regular rate Rhythm: regular rhythm Heart sounds: no murmurs GI Palpation (GI): Soft to palpation and nontender Auscultation: normal bowel sounds General: Yes no CVA tenderness Back/Spine/Pelvis Back: no CVA tenderness Cervical Spine: Cervical spine tenderness Thoracic/Lumbar Spine: No lumbar spinal tenderness Skin Rashes: no rashes Extrem General: Yes no clubbing, cyanosis or edema Results Reviewed Results Reviewed: Laboratory Tests 08/25/24 08/25/24 08:07 08:14 WBC 7.2 Hgb 14.4 Hct 45.6 Plt Count 229 Sodium 142 Potassium 5.0 Creatinine 0.66 Estimated GFR > 60 Fasting Glucose 161 H Hemoglobin A1c % 7.5 H Calcium 10.0 AST 26 ALT 23 Triglycerides 125 Cholesterol 148 LDL Cholesterol, Calc 87 HDL Cholesterol 36 L Vitamin B12 733 25-OH Vitamin D Total 31.3 TSH 1.13 Ur Specific [place] >= 1.030 H Urine Protein Trace Urine Glucose (UA) >=1000 H Urine Blood Negative Urine Nitrite Negative Ur Leukocyte Esterase Negative Microalb/Creat Ratio 152.3 H Coding Level of Care Code Est Pt Level 4 (65361) Complex EM visit Add On G2211 Diagnoses Type 2 diabetes mellitus without complication, without long-term current use of insulin E11.9 Diabetes mellitus type: type 2 Diabetes mellitus jail insulin use: without jail use Diabetes mellitus complication status: without complication Dyslipidemia E78.5 Moderate persistent asthma without complication J45.40 Asthma severity: moderate Asthma persistence: persistent Asthma complication type: uncomplicated Seasonal allergic rhinitis, unspecified trigger J30.2 Allergic rhinitis trigger: unspecified Allergic rhinitis seasonality: seasonal Vitamin D deficiency E55.9 Bilateral primary osteoarthritis of hip M16.0 Primary osteoarthritis, right shoulder M19.011 Cervical spondylosis M47.812 Additional Codes PHQ-9 - 73554 - PHQ-9 Billing: Yes ([id number]) Assessment & Plan Assessment & Plan (1) Diabetes mellitus: Code(s): E11.9 - Type 2 diabetes mellitus without complications Category: Medical Qualifiers: Diabetes mellitus type: type 2 Diabetes mellitus jail insulin use: without jail use Diabetes mellitus complication status: without complication Qualified Code(s): E11.9 - Type 2 diabetes mellitus without complications Plan: Patient's HgbA1c has improved to 7.5% on her recent labs done a few days ago (was previously at 8.7% a few months ago) - goal is < 7.0% Reinforced diabetic diet Continue Glimepiride 2 mg Q AM and Farxiga 10 mg QD Patient has not been able to tolerate Metformin in the past, even at low dose (diarrhea) (2) Dyslipidemia: Code(s): E78.5 - Hyperlipidemia, unspecified Category: Medical Plan: Results of her labs done a few days ago reviewed and discussed with patient - have advised patient that her cholesterol levels are at or near goal but they have increased slightly from her previous numbers back in January 2024 Reinforced low-cholesterol diet Will recheck her labs and fasting lipids in 4 months for follow-up (3) Asthma: Code(s): J45.909 - Unspecified asthma, uncomplicated Category: Medical Qualifiers: Asthma severity: moderate Asthma persistence: persistent Asthma complication type: uncomplicated Qualified Code(s): J45.40 - Moderate persistent asthma, uncomplicated Plan: Stable/controlled Continue Albuterol HFA 2 inhalations every 6 hours as needed (4) Allergic rhinitis: Code(s): J30.9 - Allergic rhinitis, unspecified Category: Medical Qualifiers: Allergic rhinitis trigger: unspecified Allergic rhinitis seasonality: seasonal Qualified Code(s): J30.2 - Other seasonal allergic rhinitis Plan: Continue Fluticasone 50 mcg nasal spray QD PRN and Loratadine 10 mg QD PRN (5) Vitamin D deficiency: Code(s): E55.9 - Vitamin D deficiency, unspecified Category: Medical Plan: Continue Vitamin D3 2000 units QD (6) Bilateral primary osteoarthritis of hip: Code(s): M16.0 - Bilateral primary osteoarthritis of hip Category: Medical Plan: X-rays of both hips done back in 2020 revealed (+) mild bilateral hip osteoarthritis Repeat hip x-rays done in May 2024 revealed similar findings with no evidence of progression Patient states that her hip pains have improved a lot since she started exercising regularly again recently (7) Primary osteoarthritis, right shoulder: Code(s): M19.011 - Primary osteoarthritis, right shoulder Category: Medical Plan: X-rays of her right shoulder done last year in September 2022 revealed (+) mild OA changes She has been to physical therapy for her shoulder and neck pain and states that they have helped somewhat (8) Cervical spondylosis: Code(s): M47.812 - Spondylosis without myelopathy or radiculopathy, cervical region Category: Medical Plan: Cervical spine x-rays done back in September 2022 revealed (+) cervical spondylosis Patient has also been to physical therapy for her neck pain a few months ago, which she states helped somewhat with her symptoms Will refer her again to physical therapy as needed Plan Follow up in 4 months Orders: Orders Lipid Panel 4 Months E78.00 - Pure hypercholesterolemia, unspecified Microalbumin, Random (w Creat) 4 Months E11.9 - Type 2 diabetes mellitus without complications UA CC w/rflx Micro + Cult 4 Months R30.0 - Dysuria Hemoglobin A1c 4 Months E11.9 - Type 2 diabetes mellitus without complications Complete Blood Count Auto Diff 4 Months D64.9 - Anemia, unspecified Comprehensive [employer]. Panel Fast 4 Months E78.00 - Pure hypercholesterolemia, unspecified
--- OUTSIDE RECORDS SUMMARY | 2024-08-29 16:29 | XMS_ITS | Clinical Summary ---
Author Organization [facility] [facility] ity Address [address] [place] [address] Care Team Providers Care Lifestyle Block Farmer Name Role Phone Unavailable Primary Care Provider Unavailabl e Social History Tobacco Use Types Packs/Day Years Used Date Smoking Tobacco: Never Assessed Sex and Gender Information Value Date Recorded Sex Assigned at Not on file Gender Identity Not on file Sexual Orientation Not on file Plan of Treatment Health Maintenance Due Date Last Done Comments Breast Cancer Screening 1962 DTaP,Tdap,and Td Vaccines (1 - Tdap) 1981 Cervical Cancer Screening: P ap Smear 1983 Zoster Vaccines (1 of 2) 2012 COVID-19 Vaccine ( - 2023-2 5 season) 2024 Influenza Vaccine (#1) 2024 RSV Immunization Patients 60 + Years Old (1 - 1-dose 75+ series) 2037 HIB Vaccines Aged Out No longer eligi ble based on patient's age to complete this topic HPV Vaccines Aged Out No longer eligi ble based on patient's age to complete this topic Hepatitis A Vaccines Aged Out No long er eligible based on patient's age to complete this topic Hepatitis B Vaccines Aged Out No long er eligible based on patient's age to complete this topic IPV Vaccines Aged Out No longer eligi ble based on patient's age to complete this topic MMR Vaccines Aged Out No longer eligi ble based on patient's age to complete this topic Meningococcal ACWY Vaccine Aged Out N o longer eligible based on patient's age to complete this topic Pneumococcal Vaccine: Pediat rics (0 to 5 Years) and At-Risk Patients (6 to 64 Years) Aged Out No longer eligible b ased on patient's age to complete this topic RSV Immunization Patients Un sindy 20 months Aged Out No longer eligible b ased on patient's age to complete this topic Varicella Vaccines Aged Out No longer eligible based on patient's age to complete this topic
--- OUTSIDE RECORDS SUMMARY | 2024-08-29 16:29 | XMS_ITS | Encounter Summary ---
Author Organization [employer] [facility] Address [address] [place] [address] Care Team Providers Care Template Fitter Name Role Phone Unavailable Primary Care Provider Unavailabl e Encounter Details Date Type Department Care Team (Latest Contact Info) Description 03/03/2019 Abstract C CONVERSIONS Dental, Provider, DDS Social History Tobacco Use Types Packs/Day Years Used Date Smoking Tobacco: Never Assessed Comments Unknown Sex and Gender Information Value Date Recorded Sex Assigned at Female 06/01/2022 10:33 AM EDT Legal Sex Female 10:33 AM EDT Gender Identity Female 06/01/2022 10:33 AM EDT Sexual Orientation Straight 06/01/2022 10 :33 AM EDT documented as of this encounter Plan of Treatment Not on file documented as of this encounter Visit Diagnoses Not on filedocumented in this encounter
--- OUTSIDE RECORDS SUMMARY | 2024-08-29 16:29 | XMS_ITS | Clinical Summary ---
Author Organization [employer] Address [address] [place] [address] Care Team Providers Care Collection Teller Name Role Phone Unavailable Primary Care Provider Unavailabl e Social History Tobacco Use Types Packs/Day Years Used Date Smoking Tobacco: Never Assessed Comments Unknown Sex and Gender Information Value Date Recorded Sex Assigned at Female 06/01/2022 10:33 AM EDT Legal Sex Female 10:33 AM EDT Gender Identity Female 06/01/2022 10:33 AM EDT Sexual Orientation Straight 06/01/2022 10 :33 AM EDT Plan of Treatment Health Maintenance Due Date Last Done Comments CT Colonography 1962 Colonoscopy 1962 Colorectal Cancer Screening 1962 Depression Screening 1962 FIT DNA/Cologuard 1962 FIT 1962 FOBT 1962 Sigmoidoscopy 1962 Alcohol/Substance Use Screening 1974 Tobacco Screening 1974 DTaP/Tdap/Td Vaccines (1 - Tdap) 1981 Pap Smear 1983 Cervical Cancer Screening 1992 HPV/Cotest 1992 Mammogram 2002 Zoster Vaccines (1 of 2) 2012 COVID-19 Vaccine ( - 2023-2 5 season) 2024 Influenza Vaccine (#1) 2024 RSV Patients and Pa tients Aged 60 years or older (1 - 1-dose 75+ series) 2037 HIB [...] patient's age to complete this topic Meningococcal Vaccine Aged Out No ugo roddy eligible based on patient's age to complete this topic Pneumococcal Vaccine: Pediat rics (0 to 5 Years) and At-Risk Patients (6 to 64 Years) Aged Out No longer eligible b ased on patient's age to complete this topic RSV under 20 months Aged Out No longe r eligible based on patient's age to complete this topic Rotavirus Vaccines Aged Out No longer eligible based on patient's age to complete this topic
== END 2024-08-29 16:47 | disposition home or self-care (01) ==
PROVIDERS: PCP Internal Medicine; Visit Provider Internal Medicine
DX: E11.9 Type 2 diabetes mellitus without complications (principal); E78.5 Hyperlipidemia, unspecified; J45.40 Moderate persistent asthma, uncomplicated; J30.2 Other seasonal allergic rhinitis; E55.9 Vitamin D deficiency, unspecified; M16.0 Bilateral primary osteoarthritis of hip; M19.011 Primary osteoarthritis, right shoulder; M47.812 Spondylosis without myelopathy or radiculopathy, cervical region

== ENCOUNTER → 2024-08-29 15:41 | Outpatient (BNVA) | payer OTHER, SELFPAY | PROVIDERS: PCP Internal Medicine; Visit Provider Internal Medicine | DX: E11.9 Type 2 diabetes mellitus without complications (principal); E78.5 Hyperlipidemia, unspecified; J45.40 Moderate persistent asthma, uncomplicated; J30.2 Other seasonal allergic rhinitis; E55.9 Vitamin D deficiency, unspecified; M16.0 Bilateral primary osteoarthritis of hip; M19.011 Primary osteoarthritis, right shoulder; M47.812 Spondylosis without myelopathy or radiculopathy, cervical region; Z79.899 Other long term (current) drug therapy | CPT/HCPCS: 96127 ==

== ENCOUNTER 2024-10-18 15:09 | Outpatient (AMB) | payer OTHER, SELFPAY ==
[2024-10-18 15:23] VITALS: BP 136/86; PULSE 79; RESP 20; TEMP 36.8; O2SAT 99; BMI 24.4
--- NOTE | 2024-10-18 15:23 | AM.OFFWIN_ITS ---
Intake Vital Signs 10/18/24 15:23 Height 5 ft 7 in Weight 156 lb BMI 24.4 BP 136/86 Blood Pressure Location Lt brachial Position Sitting Respiration 20 Pulse 79 Pulse Source Pulse Oximeter Temp 98.2 F Temp Source Oral Pulse Oximetry (%) 99 Oxygen Delivery Method Room Air Intake Visit Reasons: EP Asthma, Sinus pain Intake Note: Pt is here today for a walk in visit. Pt c/o sinus pain and pressure. Pt states that she was on antibiotic for sinus infection. Pt states that she has pressure in her lungs. Patient Tobacco Use Status: Former Tobacco user Allergies metformin Adverse Reaction (Unknown, Verified 10/18/24 15:26) diarrhea SEASONAL ALLERGIES Allergy (Unknown, Uncoded 10/18/24 15:26) ASTHMA Medication List - Last Reconciled 10/18/24 by Yuan Valenzuela MD albuterol sulfate 2.5 mg (3 mL) inhalation Q4-6H PRN blood sugar diagnostic (FreeStyle Lite Strips) USE TO TEST DIRECTED cholecalciferol (vitamin D3) 50 mcg PO DAILY 90 days dapagliflozin propanediol (Farxiga) 10 mg PO DAILY 90 days fluticasone propionate 50 mcg/actuation (Flonase Allergy Relief) 2 sprays intranasal DAILY glimepiride 2 mg PO QAM lancets (FreeStyle Lancets) USE DIRECTED DAILY loratadine 10 mg PO DAILY miscellaneous medical supply 1 ea miscellaneous DAILY montelukast (Singulair) 10 mg PO DAILY nebulizer accessories TUBING AND ACCESSORIES Ventolin HFA 90 mcg/actuation (albuterol sulfate) 2 puffs inhalation Q4-6H PRN 30 days NS HPI EP Asthma, Sinus pain HPI Details History - The patient is a 64-year-old female pr esenting with respiratory complaints and pressure in the lungs. - She has experienced pressure in her krishna ngs for two weeks following a course of azithromycin (Z-Oswald), which was not effective in symptom resolution. - She expressed concern over influenza a s both her daughter and other family members currently have influenza A and B. - The lung pressure is associated with m ild shortness of breath, described as huffing, but without significant chest tightness or exacerbations typical of asthma attacks. - Temperature has remained normal; no fe charbel reported. - Asthma history includes sensitivity to prednisone due to its impact on blood glucose levels, complicating her diabetes management. - She takes 2 mg glimepiride for blood s ugar control, being allergic to metformin. Problem List - Asthma exacerbation - Diabetes Mellitus, likely Type 2 - Allergies Patient Instructions - Monitor blood glucose levels at home, especially if prednisone is required. - Take an additional dose of glimepiride if blood sugar levels increase significantly. - Use 5 mg prednisone tablets sent to [facility] pharmacy if asthma symptoms worsen. - Maintain close observation for any wor sening of respiratory symptoms or asthma exacerbations. - influenza vaccine up-to-date Review of Systems - General: No fever no chills - Neurological: No headaches no dizziness - Ear nose throat: No sore throat no hearing difficulty no ear pain - Cardiovascular: No syncope, no chest pain, no palpitations - Gastrointestinal: No nausea vomiting or diarrhea Physical Exam General: No acute distress HEENT: No acute findings Neck: Supple Respiratory system: Lungs are clear, able to talk in full sentences, no audible wheeze cardiovascular: S1-S2 regular in rate and rhythm Gastrointestinal: No pain Extremities: No new findings CELL TENDER: Alert awake oriented x3 motor sensory intact Skin: Normal turgor [facility] Medical History Vitamin D deficiency Bilateral primary osteoarthritis of hip Cervical spondylosis Primary osteoarthritis, right shoulder Other bursal cyst, left ankle and foot Overweight (BMI 25.0-29.9) Dyslipidemia Asthma Diabetes mellitus Exposure to COVID-19 virus Surgical History History of knee replacement procedure of right knee History of bilateral breast reduction surgery History of hysterectomy Family History Father Diabetes Parkinson disease Mother Medical history unknown Alzheimer disease Social History Housing: House Alcohol intake: current Alcohol intake frequency: holidays/special occasions only Patient Tobacco Use Status: Former Tobacco user e-Cigarette/Vaping Use: Never Used Second Hand Smoke Exposure: No service: No Current occupational status: employed Cognitive needs: No Hearing needs: No Vision needs: Yes Physical Exam Vital Signs: Last Vital Signs Temp 98.2 F 10/18/24 15:23 Pulse 79 03/19/25 15:23 Resp 20 10/18/24 15:23 BP 136/86 10/18/24 15:23 Pulse Ox 99 10/18/24 15:23 Oxygen Delivery Method Room Air 10/18/24 15:23 BMI result Body Mass Index 24.4 Assessment & Plan Assessment & Plan (1) Asthma exacerbation: Code(s): J45.901 - Unspecified asthma with (acute) exacerbation Qualifiers: Asthma severity: mild Asthma persistence: persistent Qualified Code(s): J45.31 - Mild persistent asthma with (acute) exacerbation Plan History - The patient is a 64-year-old female presenting with respiratory complaints and pressure in the lungs. - She has experienced pressure in her lungs for two weeks following a course of azithromycin (Z-Oswald), which was not effective in symptom resolution. - She expressed concern over influenza as both her daughter and other family members currently have influenza A and B. - The lung pressure is associated with mild shortness of breath, described as huffing, but without significant chest tightness or exacerbations typical of asthma attacks. - Temperature has remained normal; no fever reported. - Asthma history includes sensitivity to prednisone due to its impact on blood glucose levels, complicating her diabetes management. - She takes 2 mg glimepiride for blood sugar control, being allergic to metfor min. Problem List - Asthma exacerbation - Diabetes Mellitus, likely Type 2 - Allergies Patient Instructions - Monitor blood glucose levels at home, especially if prednisone is required. - Take an additional dose of glimepiride if blood sugar levels increase significantly. - Use 5 mg prednisone tablets sent to the pharmacy if asthma symptoms worsen. - Maintain close observation for any worsening of respiratory symptoms or asthma exacerbations. - influenza vaccine up-to-date Medications: New prednisone 5 mg PO DAILY 5 days 5 tabs 0RF Coding Level of Care Code Est Pt Level 3 (26350) Diagnoses Mild persistent asthma with exacerbation J45.31 Asthma severity: mild Asthma persistence: persistent
--- OUTSIDE RECORDS SUMMARY | 2024-10-18 17:10 | XMS_ITS | Encounter Summary ---
Author Organization [employer] [facility] Address [address] [place] [address] Care Team Providers Care Cans Vacuum Tester Name Role Phone Unavailable Primary Care Provider [...]
--- OUTSIDE RECORDS SUMMARY | 2024-10-18 17:10 | XMS_ITS | Clinical Summary ---
Author Organization [employer] Address [address] [place] [address] Care Team Providers Care Wire Walker Name Role Phone Unavailable Primary Care Provider [...] Cancer Screening 1992 HPV/Cotest 1992 Mammogram 2002 Pneumococcal Vaccine: 50+ Ye ars (1 of 1 - PCV) 2012 Zoster Vaccines (1 of 2) 2012 COVID-19 [...] 5 Years) and At-Risk Patients (6 to 49) Years) Aged Out No longer eligible b ased on patient's age to complete this topic RSV under 20 months Aged Out No longe r eligible based on patient's age to complete this topic Rotavirus Vaccines Aged Out No longer eligible based on patient's age to complete this topic
--- OUTSIDE RECORDS SUMMARY | 2024-10-18 17:10 | XMS_ITS | Clinical Summary ---
Author Organization [facility] Address [address] [place] [address] Care Team Providers Care Commercial Insurance Underwriter Name Role Phone Unavailable Primary Care Provider Unavailabl e Social History Tobacco Use Types Packs/Day Years Used Date Smoking Tobacco: Never Assessed Comments Unknown Sex and Gender Information Value Date Recorded Sex Assigned at Not on file Legal Sex Female 6:12 PM EST Gender Identity Not on file Sexual Orientation Not on file Plan of Treatment Health Maintenance Due Date Last Done Comments Breast Cancer Screening 1962 DTaP,Tdap,and Td Vaccines (1 - Tdap) 1981 Cervical Cancer Screening: P ap Smear 1983 Pneumococcal Vaccine: 50+ Ye ars (1 of [...] patient's age to complete this topic Meningococcal B Vacine Aged Out No lo nger eligible based on patient's age to complete [...]
== END 2024-10-18 15:54 | disposition home or self-care (01) ==
PROVIDERS: PCP Internal Medicine; Visit Provider Internal Medicine
DX: J45.31 Mild persistent asthma with (acute) exacerbation (principal)

== ENCOUNTER 2024-12-11 16:22 | Outpatient (AMB) | payer OTHER, SELFPAY ==
--- OUTSIDE RECORDS SUMMARY | 2024-12-11 16:24 | XMS_ITS | Clinical Summary ---
Author Organization [facility] Address [address] [place] [address] Care Team Providers Care Bankruptcy Judge Name Role Phone Unavailable Primary Care Provider [...] - 2023-2 5 season) 2024 Influenza Vaccine (Season Ended) 2025 RSV Immunization Adult Patie nts (1 - 1-dose 75+ series) 2037 HIB [...] age to complete this topic Meningococcal B Vaccine Aged Out No l onger eligible based on patient's age to complete [...]
--- OUTSIDE RECORDS SUMMARY | 2024-12-11 16:24 | XMS_ITS | Encounter Summary ---
Author Organization [email or web address] Address [address] [place] [address] Care Team Providers Care Pillow Filler Name Role Phone Unavailable Primary Care Provider Unavailabl e Encounter Details Date Type Department Care Team (Latest Contact Info) Description 03/03/2019 Abstract [facility] CONVERSIONS Dental, Provider, DDS Social History Tobacco [...]
--- NOTE | 2024-12-11 16:29 | MHC.PC.OV ---
"Vital Signs 12/11/24 16:31 Height 5 ft 7 in Weight 155 lb BMI 24.3 BP 128/82 Blood Pressure Location Lt brachial Position Sitting Pulse 81 Pulse Source Pulse Oximeter Pulse Oximetry (%) 97 Oxygen Delivery Method Room Air Intake Visit Reasons: DM, hyperlipidemia, OA Director Of Workforce Development Required: No Accompanied by: Self / Same As Patient Allergies metformin Adverse Reaction (Unknown, Verified 12/11/24 17:10) diarrhea SEASONAL ALLERGIES Allergy (Unknown, Uncoded 12/11/24 17:10) ASTHMA Medication List - Last Reconciled 12/11/24 by Esdras Swann MD albuterol sulfate 2.5 mg (3 mL) inhalation Q4-6H PRN blood sugar diagnostic (FreeStyle Lite Strips) USE TO TEST DIRECTED cholecalciferol (vitamin D3) 50 mcg PO DAILY 90 days dapagliflozin propanediol (Farxiga) 10 mg PO DAILY 90 days fluticasone propionate 50 mcg/actuation (Flonase Allergy Relief) 2 sprays intranasal DAILY glimepiride 2 mg PO QAM lancets (FreeStyle Lancets) USE DIRECTED DAILY loratadine 10 mg PO DAILY miscellaneous medical supply 1 ea miscellaneous DAILY montelukast (Singulair) 10 mg PO DAILY nebulizer accessories TUBING AND ACCESSORIES prednisone 5 mg PO DAILY 5 days Ventolin HFA 90 mcg/actuation (albuterol sulfate) 2 puffs inhalation Q4-6H PRN 30 days NS Tobacco use date assessed: 12/11/24 Dental Screening Dental Screen Date: 12/11/24 Did you have a dental visit in the last 12 months?: Yes Did you have a dental problem in the last 6 months where you did not have access to dental care?: No Was dental information given to patient?: Patient has dentist HPI DM, hyperlipidemia, OA HPI Details recurrent frontal MCINTYRE - sinus? vs allergies? PFSH Medical History Vitamin D deficiency Bilateral primary osteoarthritis of hip Cervical spondylosis Primary osteoarthritis, right shoulder Other bursal cyst, left ankle and foot Overweight (BMI 25.0-29.9) Dyslipidemia Asthma Diabetes mellitus Exposure to COVID-19 virus Surgical History History of knee replacement procedure of right knee History of bilateral breast reduction surgery History of hysterectomy Family History Father Diabetes Parkinson disease Mother Medical history unknown Alzheimer disease Social History Housing: House Alcohol intake: current Alcohol intake frequency: holidays/special occasions only Patient Tobacco Use Status: Former Tobacco user e-Cigarette/Vaping Use: Never Used Second Hand Smoke Exposure: No service: No Current occupational status: employed Cognitive needs: No Hearing needs: No Vision needs: Yes Questionnaire PHQ-9 Over the last 2 weeks, how often have you been bothered by any of the following problems? 1. Little interest or pleasure in doing things: not at all 2. Feeling down, depressed, or hopeless: not at all 3. Trouble falling or staying asleep, or sleeping too much: not at all 4. Feeling tired or having little energy: not at all 5. Poor appetite or overeating: not at all 6. Feeling bad about yourself - or that you are a failure or have let yourself or your family down: not at all 7. Trouble concentrating on things, such as reading the newspaper or watching television: not at all 8. Moving or speaking so slowly that other people could have noticed. Or the opposite - being so fidgety or restless that you have been moving around a lot more than usual: not at all 9. Thoughts that you would be better off or of hurting yourself in some way: not at all Total score: 0 Source: Developed by Drs. Kwesi Caraballo, Pia Rosales, Davy Velazquez and colleagues, with an educational giovany from [employer]. Thrive Questionnaire Date Thrive assessed: 12/11/24 I am a: Patient What is your living situation today?: I have a steady place to live Within the past 12 months, did the food you bought not last and you didn't have the money to get more?: Never true Within the past 12 months, did you worry whether your food would run out before you got money to buy more?: Never true Do you have trouble paying for medicines?: No Do you have trouble getting transportation to medical appointments?: No Do you have trouble paying your heating and electricity bill?: Yes Do you have trouble taking care of your child, family member or friend?: No Do you have trouble with day-to-day activities such as bathing, preparing meals, shopping, managing finances, etc.?: No Are you currently unemployed and looking for a job?: No Are you interested in more education?: No Please select the resources that you would like help with: None Currently or been in a relationship where the following occur: No concerns reported THRIVE Score: 1 AUDIT C Alcohol Use Questionnaire (AUDIT-C) 1. How often do you have a drink containing alcohol?: Never 3. How often do you have six or more drinks on one occasion?: Never Total Score: 0 SALLY-7 AMB Questionnaire SALLY-7 Date SALLY - 7 assessed: 12/11/24 Feeling nervous, anxious, or on edge: 0 = Not at all Not being able to stop or control worryin = Not at all Worrying too much about different things: 0 = Not at all Trouble relaxin = Not at all Being so restless that it is hard to sit still: 0 = Not at all Becoming easily annoyed or irritable: 0 = Not at all Feeling afraid as if something awful might happen: 0 = Not at all Total SALLY-7 score (0-4 normal; 5-9 mild; 10-14 moderate; 15-21 severe): 0 Source: Developed by Drs. Kwesi Caraballo, Pia Rosales, Davy Velazquez and colleagues, with an educational giovany from [employer]. Physical exam (Primary Care) Vital Signs: Last Vital Signs Pulse 81 12/11/24 16:31 BP 128/82 12/11/24 16:31 Pulse Ox 97 12/11/24 16:31 Oxygen Delivery Method Room Air 12/11/24 16:31 BMI result Body Mass Index 24.3 Tobacco/Smoking Status: Tobacco use Status Tobacco use date assessed 12/11/24 12/11/24 16:32 Patient Tobacco Use Status Former Tobacco user 12/11/24 16:32 e-Cigarette/Vaping Use Never Used 12/11/24 16:32 PHQ-9: PHQ-9 Score PHQ-9: Total score 0 12/11/24 16:51 Thrive Assessment: Date of Thrive Assessment Date Thrive assessed 12/11/24 12/11/24 16:32 Currently or been in a relationship where the following occur: No concerns reported Results AMB Hemoglobin A1c AMB Hemoglobin A1c 7.6 % Last Edit by KRISTEN Roque on 12/11/24 16:51 Results Reviewed Results Reviewed: Laboratory Last Values Hgb A1c (Clinic) 7.6 % (4.0-6.0) H 12/11/24 16:39 Coding Diagnoses Type 2 diabetes mellitus without complication, without long-term current use of insulin E11.9 Diabetes mellitus type: type 2 Diabetes mellitus fdc insulin use: without fdc use Diabetes mellitus complication status: without complication Dyslipidemia E78.5 Moderate persistent asthma without complication J45.40 Asthma severity: moderate Asthma persistence: persistent Asthma complication type: uncomplicated Seasonal allergic rhinitis, unspecified trigger J30.2 Allergic rhinitis trigger: unspecified Allergic rhinitis seasonality: seasonal Vitamin D deficiency E55.9 Bilateral primary osteoarthritis of hip M16.0 Primary osteoarthritis, right shoulder M19.011 Cervical spondylosis M47.812 Assessment & Plan Assessment & Plan (1) Diabetes mellitus: Code(s): E11.9 - Type 2 diabetes mellitus without complications Category: Medical Qualifiers: Diabetes mellitus type: type 2 Diabetes mellitus intermediate frame tender insulin use: without fdc use Diabetes mellitus complication status: without complication Qualified Code(s): E11.9 - Type 2 diabetes mellitus without complications Plan: Patient's HgbA1c has improved to 7.5% on her recent labs done a few days ago (was previously at 8.7% a few months ago) - goal is < 7.0% Reinforced diabetic diet Continue Glimepiride 2 mg Q AM and Farxiga 10 mg QD Patient has not been able to tolerate Metformin in the past, even at low dose (diarrhea) (2) Dyslipidemia: Code(s): E78.5 - Hyperlipidemia, unspecified Category: Medical Plan: Results of her labs done a few days ago reviewed and discussed with patient - have advised patient that her cholesterol levels are at or near goal but they have increased slightly from her previous numbers back in January 2024 Reinforced low-cholesterol diet Will recheck her labs and fasting lipids in 4 months for follow-up (3) Asthma: Code(s): J45.909 - Unspecified asthma, uncomplicated Category: Medical Qualifiers: Asthma severity: moderate Asthma persistence: persistent Asthma complication type: uncomplicated Qualified Code(s): J45.40 - Moderate persistent asthma, uncomplicated Plan: Stable/controlled Continue Albuterol HFA 2 inhalations every 6 hours as needed (4) Allergic rhinitis: Code(s): J30.9 - Allergic rhinitis, unspecified Category: Medical Qualifiers: Allergic rhinitis trigger: unspecified Allergic rhinitis seasonality: seasonal Qualified Code(s): J30.2 - Other seasonal allergic rhinitis Plan: Continue Fluticasone 50 mcg nasal spray QD PRN and Loratadine 10 mg QD PRN (5) Vitamin D deficiency: Code(s): E55.9 - Vitamin D deficiency, unspecified Category: Medical Plan: Continue Vitamin D3 2000 units QD (6) Bilateral primary osteoarthritis of hip: Code(s): M16.0 - Bilateral primary osteoarthritis of hip Category: Medical Plan: X-rays of both hips done back in 2020 revealed (+) mild bilateral hip osteoarthritis Repeat hip x-rays done in May 2024 revealed similar findings with no evidence of progression Patient states that her hip pains have improved a lot since she started exercising regularly again recently (7) Primary osteoarthritis, right shoulder: Code(s): M19.011 - Primary osteoarthritis, right shoulder Category: Medical Plan: X-rays of her right shoulder done last year in September 2022 revealed (+) mild OA changes She has been to physical therapy for her shoulder and neck pain and states that they have helped somewhat (8) Cervical spondylosis: Code(s): M47.812 - Spondylosis without myelopathy or radiculopathy, cervical region Category: Medical Plan: Cervical spine x-rays done back in September 2022 revealed (+) cervical spondylosis Patient has also been to physical therapy for her neck pain a few months ago, which she states helped somewhat with her symptoms Will refer her again to physical therapy as needed Plan Follow up in 4 months Orders: Orders AMB Hemoglobin A1c Today Z13.9 - Encounter for screening, unspecified Complete Blood Count Auto Diff 4 Months D64.9 - Anemia, unspecified Lipid Panel 4 Months E78.00 - Pure hypercholesterolemia, unspecified Hemoglobin A1c 4 Months E11.9 - Type 2 diabetes mellitus without complications TSH reflex Free T4 4 Months E78.00 - Pure hypercholesterolemia, unspecified UA CC w/rflx Micro + Cult 4 Months R30.0 - Dysuria Comprehensive [place]. Panel Fast 4 Months E78.00 - Pure hypercholesterolemia, unspecified Microalbumin, Random (w Creat) 4 Months E11.9 - Type 2 diabetes mellitus without complications Vitamin D 25-OH Total 4 Months E55.9 - Vitamin D deficiency, unspecified Medications: New triamcinolone acetonide (Nasacort Allergy) administer into each nostril 2 sprays intranasal DAILY PRN 16.9 mL 2RF allergy symptoms amoxicillin-pot clavulanate 875-125 mg 1 tab PO BID 7 days 14 tabs 0RF cetirizine 10 mg PO DAILY 90 days PRN 90 tabs 3RF allergy symptoms Changed From glimepiride 2 mg PO QAM 30 tabs 3RF To glimepiride 2 mg PO QAM 90 days 90 tabs 1RF"
[2024-12-11 16:31] VITALS: BP 128/82; PULSE 81; O2SAT 97; BMI 24.3
== END 2024-12-11 17:25 | disposition home or self-care (01) ==
LOC: HO.HMCH 16:23
PROVIDERS: PCP Internal Medicine; Visit Provider Internal Medicine
DX: Z13.9 Encounter for screening, unspecified (principal)

== ENCOUNTER → 2024-12-11 16:22 | Outpatient (BNVA) | payer OTHER, SELFPAY | PROVIDERS: PCP Internal Medicine; Visit Provider Internal Medicine | DX: E11.9 Type 2 diabetes mellitus without complications (principal); E78.5 Hyperlipidemia, unspecified; J45.40 Moderate persistent asthma, uncomplicated; J30.2 Other seasonal allergic rhinitis; J01.10 Acute frontal sinusitis, unspecified; E55.9 Vitamin D deficiency, unspecified; M16.0 Bilateral primary osteoarthritis of hip; M19.011 Primary osteoarthritis, right shoulder; M47.812 Spondylosis without myelopathy or radiculopathy, cervical region; Z79.84 Long term (current) use of oral hypoglycemic drugs | CPT/HCPCS: 83036; 96127 ==

== ENCOUNTER 2025-04-23 15:47 | Outpatient (AMB) | payer OTHER, SELFPAY ==
--- NOTE | 2025-04-23 16:02 | MHC.PC.OV ---
Vital Signs 04/23/25 16:03 Height 5 ft 7 in Weight 159 lb 2 oz BMI 24.9 BP 126/82 Blood Pressure Location Lt brachial Position Sitting Pulse 86 Pulse Source Pulse Oximeter Pulse Oximetry (%) 97 Oxygen Delivery Method Room Air Intake Visit Reasons: 4 Months Gun Perforator Required: No Accompanied by: Self / Same As Patient Allergies metformin Adverse Reaction (Unknown, Verified 04/23/25 16:03) diarrhea SEASONAL ALLERGIES Allergy (Unknown, Uncoded 04/23/25 16:03) ASTHMA Tobacco use date assessed: 04/23/25 Dental Screening Dental Screen Date: 04/23/25 Did you have a dental visit in the last 12 months?: Yes Did you have a dental problem in the last 6 months where you did not have access to dental care?: No Was dental information given to patient?: Patient has dentist [facility] Medical History Vitamin D deficiency Bilateral primary osteoarthritis of hip Cervical spondylosis Primary osteoarthritis, right shoulder Other bursal cyst, left ankle and foot Overweight (BMI 25.0-29.9) Dyslipidemia Asthma Diabetes mellitus Exposure to COVID-19 virus Surgical History History of knee replacement procedure of right knee History of bilateral breast reduction surgery History of hysterectomy Family History Father Diabetes Parkinson disease Mother Medical history unknown Alzheimer disease Social History Housing: House Alcohol intake: current Alcohol intake frequency: holidays/special occasions only Patient Tobacco Use Status: Former Tobacco user e-Cigarette/Vaping Use: Never Used Second Hand Smoke Exposure: No service: No Current occupational status: employed Cognitive needs: No Hearing needs: No Vision needs: Yes Questionnaire Thrive Questionnaire Date Thrive assessed: 12/04/24 I am a: Patient What is your living situation today?: I have a steady place to live Within the past 12 months, did the food you bought not last and you didn't have the money to get more?: Never true Within the past 12 months, did you worry whether your food would run out before you got money to buy more?: Never true Do you have trouble paying for medicines?: No Do you have trouble getting transportation to medical appointments?: No Do you have trouble paying your heating and electricity bill?: Yes Do you have trouble taking care of your child, family member or friend?: No Do you have trouble with day-to-day activities such as bathing, preparing meals, shopping, managing finances, etc.?: No Are you currently unemployed and looking for a job?: No Are you interested in more education?: No Please select the resources that you would like help with: None Currently or been in a relationship where the following occur: No concerns reported THRIVE Score: 1 AUDIT C Alcohol Use Questionnaire (AUDIT-C) 1. How often do you have a drink containing alcohol?: Never 3. How often do you have six or more drinks on one occasion?: Never Total Score: 0 Score Reviewed/Action Taken: Yes SALLY-7 AMB Questionnaire SALLY-7 Date SALLY - 7 assessed: 12/11/24 Source: Developed by Drs. Kwesi Caraballo, Pia Rosales, Davy Velazquez and colleagues, with an educational giovany from [employer]. Physical exam (Primary Care) Vital Signs: Last Vital Signs Pulse 86 04/23/25 16:03 BP 126/82 04/23/25 16:03 Pulse Ox 97 04/23/25 16:03 Oxygen Delivery Method Room Air 04/23/25 16:03 BMI result Body Mass Index 24.9 Tobacco/Smoking Status: Tobacco use Status Tobacco use date assessed 04/23/25 04/23/25 16:03 Patient Tobacco Use Status Former Tobacco user 04/23/25 16:03 e-Cigarette/Vaping Use Never Used 04/23/25 16:03 Thrive Assessment: Date of Thrive Assessment Date Thrive assessed 12/04/24 04/23/25 16:03 Currently or been in a relationship where the following occur: No concerns reported Results AMB Hemoglobin A1c AMB Hemoglobin A1c 8.2 % Last Edit by KRISTEN Roque on 04/23/25 16:22 Results Reviewed Results Reviewed: Laboratory Last Values Hgb A1c (Clinic) 8.2 % (4.0-6.0) H 04/23/25 16:11 Coding Diagnoses Bilateral foot pain M79.671; M79.672 Assessment & Plan Assessment & Plan (1) Bilateral foot pain: Code(s): M79.671 - Pain in right foot; M79.672 - Pain in left foot Category: Medical Orders: Orders TSH reflex Free T4 4 Months E78.00 - Pure hypercholesterolemia, unspecified AMB Hemoglobin A1c Today Z13.9 - Encounter for screening, unspecified XR Foot Matias 3V Today M79.671 - Pain in right foot, M79.672 - Pain in left foot XR knee LT 4V Today M25.562 - Pain in left knee Hemoglobin A1c 4 Months E11.9 - Type 2 diabetes mellitus without complications Complete Blood Count Auto Diff 4 Months D64.9 - Anemia, unspecified Comprehensive [place]. Panel Fast 4 Months E78.00 - Pure hypercholesterolemia, unspecified Lipid Panel 4 Months E78.00 - Pure hypercholesterolemia, unspecified UA CC w/rflx Micro + Cult 4 Months R30.0 - Dysuria Vitamin D 25-OH Total 4 Months E55.9 - Vitamin D deficiency, unspecified Medications: Refilled glimepiride 2 mg PO QAM 90 tabs 1RF 90 days Discontinued amoxicillin-pot clavulanate 875-125 mg Discontinued Reason: Patient Completed Course 1 tab PO BID 7 days 14 tabs 0RF prednisone Discontinued Reason: Patient Completed Course 5 mg PO DAILY 5 days 5 tabs 0RF azithromycin Discontinued Reason: Patient Completed Course take 500 mg today (day 1), then 250 mg for 4 days (days 2-5) PO 6 tabs 0RF
[2025-04-23 16:03] VITALS: BP 126/82; PULSE 86; O2SAT 97; BMI 24.9
== END 2025-04-23 16:51 | disposition home or self-care (01) ==
LOC: HO.HMCH 15:48
PROVIDERS: PCP Internal Medicine; Visit Provider Internal Medicine
DX: Z13.9 Encounter for screening, unspecified (principal)

== ENCOUNTER → 2025-04-23 15:47 | Outpatient (BNVA) | payer OTHER, SELFPAY | PROVIDERS: PCP Internal Medicine; Visit Provider Internal Medicine | DX: M79.671 Pain in right foot (principal); M79.672 Pain in left foot; E11.9 Type 2 diabetes mellitus without complications; J45.40 Moderate persistent asthma, uncomplicated; J30.2 Other seasonal allergic rhinitis; E55.9 Vitamin D deficiency, unspecified; M16.0 Bilateral primary osteoarthritis of hip; M19.011 Primary osteoarthritis, right shoulder; M47.812 Spondylosis without myelopathy or radiculopathy, cervical region; M25.562 Pain in left knee; E78.00 Pure hypercholesterolemia, unspecified; D64.9 Anemia, unspecified | CPT/HCPCS: 83036 ==

== ENCOUNTER 2025-04-28 09:44 | Outpatient (REF) | payer OTHER, SELFPAY ==
--- NOTE | ~2025-04-28 | XR_ITS ---
EXAMINATION: XR KNEE 4 OR MORE VIEWS LEFT HISTORY: M25.562 - Pain in left knee COMPARISON: Correlation is made with a standing AP view of the left knee dated 07/24/2016. FINDINGS: Four views of the left knee are submitted. Osseous mineralization is normal. There is no fracture or dislocation. There is mild to moderate narrowing of the medial [place] intact. The soft tissues are unremarkable. There is no joint effusion. XR/XR knee LT 4V IMPRESSION: Mild to moderate narrowing of the medial compartment. Electronically signed by: Kwesi Peres MD 04/30/2025 08:06 AM EDT
--- NOTE | ~2025-04-28 | XR_ITS ---
CLINICAL HISTORY: M79.671 - Pain in right foot 6 view bilateral feet Comparison: None provided Findings: No fractures or dislocations. Midfoot spurring. Small dorsal and plantar calcaneal spurs. No ankle effusion. No radiopaque foreign body. IMPRESSION: 1. No acute findings. Mild DJD. This document has been electronically signed by: Gary Hinson MD on 04/30/2025 23:11:54
--- OUTSIDE RECORDS SUMMARY | 2025-04-28 09:48 | XMS_ITS | Clinical Summary ---
Author Organization [employer] Address [address] [facility] [address] [place] [address] Care Team Providers Care Instrumentation Manager Name Role Phone Unavailable Primary Care Provider [...] 1962 FIT 1962 FOBT 1962 Sigmoidoscopy 1962 Disability Screening 1962 Alcohol/Substance Use Screening 1974 Tobacco Screening 1974 DTaP/Tdap/Td Vaccines (1 - Tdap) 1981 Pap Smear 1983 Cervical Cancer Screening 1992 HPV/Cotest 1992 Mammogram 2002 Pneumococcal Vaccine: 50+ Ye ars (1 of 1 - PCV) 2012 Zoster Vaccines (1 of 2) 2012 COVID-19 Vaccine ( - 2023-2 5 season) 2025 Influenza Vaccine (#1) 2025 RSV Patients and Pa tients Aged 60 [...]
--- OUTSIDE RECORDS SUMMARY | 2025-04-28 09:48 | XMS_ITS | Clinical Summary ---
Author Organization [facility] Address [address] [place] [address] Care Team Providers Care Contact Center Director Name Role Phone Unavailable Primary Care Provider [...] 2012 Zoster Vaccines (1 of 2) 2012 Depression Screening 08/02/2024 COVID-19 Vaccine (1 - 2023-2 5 season) 2025 Influenza Vaccine (#1) 2025 RSV Immunization Adult Patie nts (1 [...]
--- OUTSIDE RECORDS SUMMARY | 2025-04-28 09:48 | XMS_ITS | Encounter Summary ---
Author Organization [employer] Address [address] [facility] [address] [place] [address] Care Team Providers Care Medical Secretary Receptionist Name Role Phone Unavailable Primary Care Provider Unavailabl e Encounter Details Date Type Department Care Team (Latest Contact Info) Description 03/03/2019 Abstract [facility] CONVERSIONS Dental, Provider, DDS Social History Tobacco [...]
[2025-04-28 10:00] LABS: MANUAL DIFF FLAG NO
[2025-04-28 11:36] LABS: Hematocrit 43.9 % (37.0-47.0); Hemoglobin 14.0 g/dl (12.0-16.0); Imm Gran Abs Auto 0.02 X10*3/uL (0.00-0.03); Imm Gran Pct Auto 0.2 % (0.0-0.4); Lymphocytes Absolute Auto 2.8 X10*3/uL (1.2-4.9); Mean Corpuscular HGB Conc 31.9 g/dl (31.0-35.0); Mean Corpuscular Hemoglobin 25.4 pg (27.0-33.0); Mean Corpuscular Volume 79.5 fL (80.0-98.0); NRBC Abs Auto 0.000 X10*3/uL (0.0-0.012); NRBC Pct Auto 0.0 /100WBC (0.0-0.2); Platelet Count 252 X10*3/uL (160-400); Red Blood Count 5.52 X10*6/uL (4.20-5.50); White Blood Count 8.6 X10*3/uL (4.8-10.8)
[2025-04-28 11:39] LABS: Appearance Urine Clear; Glucose Urine UA 100 mg/dL (Negative); PH 5.5 (5.0-9.0); Specific Gravity - Urine 1.015 (1.005-1.025); UMIC TRIGGER UACC YES
[2025-04-28 12:06] LABS: Alanine Aminotransferase 21 U/L (0-31); Albumin Level 4.8 g/dL (3.5-5.0); Alkaline Phosphatase 86 U/L (39-117); Anion Gap 13 (12-20); Aspartate Amino Transferase 22 U/L (5-31); Blood Urea Nitrogen 15 mg/dL (9-16); Calcium 9.6 mg/dL (8.4-10.2); Carbon Dioxide 27 mmol/L (22-29); Chloride 106 mmol/L (96-108); Cholesterol 147 mg/dL (<200); Estimated Glomerular Filt Rate > 60; HDL Cholesterol 34 mg/dL (>40); Potassium 4.6 mmol/L (3.3-5.1); Sodium 141 mmol/L (135-145); Total Protein 7.3 g/dL (6.5-8.0); Triglycerides 217 mg/dL (<150)
[2025-04-28 12:28] LABS: Microalbum/Creatinine Ratio Ur 324.1 ug/mg cr (<30)
== END 2025-04-28 09:45 | disposition home or self-care (01) ==
LOC: HO.LAB 09:44
PROVIDERS: PCP Internal Medicine; Visit Provider Internal Medicine
DX: M79.671 Pain in right foot (principal); M79.672 Pain in left foot; M25.562 Pain in left knee; E11.9 Type 2 diabetes mellitus without complications; D64.9 Anemia, unspecified; E78.00 Pure hypercholesterolemia, unspecified
CPT/HCPCS: 36415; 73564; 73630; 80053; 80061; 81001; 82043; 82570; 83036; 84443; 85025

== ENCOUNTER → 2025-04-28 10:05 | Outpatient (BNV) | payer OTHER, SELFPAY | PROVIDERS: PCP Internal Medicine; Visit Provider Radiology Diagnostic Radiology | DX: M25.862 Other specified joint disorders, left knee (principal) | CPT/HCPCS: 73564 ==